=== PATIENT | female | born 1955 | race Asian ===

== ENCOUNTER → 2017-07-31 | Outpatient (CLI) | payer OTHER, SELFPAY | PROVIDERS: Visit Provider Nurse Practitioner Family | DX: Z13.820 Encounter for screening for osteoporosis (principal) | CPT/HCPCS: 77080 ==

== ENCOUNTER → 2017-11-26 10:46 | Outpatient (POV) | payer OTHER, SELFPAY | PROVIDERS: Family Provider Nurse Practitioner Family; PCP Family Medicine; Visit Provider Specialist | DX: G62.9 Polyneuropathy, unspecified (principal) | CPT/HCPCS: 95886; 95908 ==

== ENCOUNTER → 2017-12-03 14:55 | Outpatient (POV) | payer OTHER, SELFPAY | PROVIDERS: Family Provider Nurse Practitioner Family; PCP Family Medicine; Visit Provider Specialist | DX: G62.9 Polyneuropathy, unspecified (principal); R20.2 Paresthesia of skin | CPT/HCPCS: 95908 ==

== ENCOUNTER → 2018-01-21 15:05 | Outpatient (POV) | payer OTHER, SELFPAY ==
[2018-01-21 15:23] VITALS: BP 123/71; PULSE 86; RESP 18; O2SAT 98
--- NOTE | 2018-01-21 15:56 | HMH.PMCON ---
Assessment and Plan (1) Neuropathy Current visit: Yes Status: Chronic Category: Medical Code(s): G62.9 - Polyneuropathy, unspecified - Assessment and plan all Dx Assessment and Plan for all problems:: We will start the patient back on her gabapentin 100 mg 1 p.o. 3 times daily. We will follow-up with her in 3 months. Patient has been instructed to call our office if she has issues prior to her appointment. Patient is doing well at this time after her steroid injection by Dr. Hendrix. This note was dictated using voice recognition software and may contain errors or omissions HPI - Data of Consult Consult date: 01/21/18 Requesting Physician: Rama Bustos APRN Primary Care Provider: Blayne Hung MD Family Provider: Daiana Golden APRN - Consult Narrative Reason for consult: Right foot pain History of present illness: Ms. Pierre is a 62 year old female who presents today for consultation in regards to right foot pain. Patient said that the injury occurred after repetitive motion from a sewing machine. Patient states working increases the pain while rest decreases it. Patient denies numbness or tingling. Patient is currently on diclofenac cream. Patient rates her pain 0 out of 10 today. Patient states that she had a steroid injection in her right foot by Dr. Foley. Patient states that after this she has done extremely well. Patient states she does have burning sensations at times in her right foot. Patient used to be on gabapentin. She denies any side effects to this. Patient would like to restart this. CC: Rama Bustos APRN [facility] History I have reviewed the patient's past medical history: Yes Medical History: Denies:: Asthma, Chronic Obstructive Pulmonary Disease (COPD), Diabetes Mellitus Type 1, Diabetes Mellitus Type 2, Gastroesophageal Reflux Disease(GERD) Other Medical History: Reports: Arthritis. Denies: Hypothyroidism, Thyroid Disease Laterality Cases: Bilateral: Carpal Tunnel Release, Tonsillectomy Other Surgeries: Yes: Hysterectomy-Total Amputation: No Fractures: No - *Social History Smoking Status: Never smoker Alcohol Intake: never Alcohol Intake Frequency:: other Occupational Status: employed Housing: house Household Members: spouse - Psychiatric History Expresses thoughts of harming self/others: None Suicide Plan Description: No Plan *Family Hx:: Cancer Review of Systems - Review of Systems ROS General: no recent weight change, no fever, no sleep disturbances Respiratory: no cough, no shortness of air, no recurring pulmonary infections Cardiovascular/Peripheral Vascular: No chest pain, No palpitations, no edema, no shortness of breath. Gastrointestinal: no incontinence, normal bowel movements reported Genitourinary: no incontinence Musculoskeletal: Right foot pain Psychiatric: normal mood/ affect Neurological: [denies weakness in extremities], [denies balance issues] Meds Home Medications Medication Instructions Recorded Confirmed Type Diclofenac Sodium [Diclofenac Sod 100 gm TOPICAL DAILY 01/21/18 01/21/18 History 100gm Topical Gel] Gabapentin [Gabapentin 100mg Cap] 100 mg PO DAILY 01/21/18 01/21/18 History Allergies Allergy/AdvReac Type Severity Reaction Status Date / Time No Known Drug Allergies Allergy Unknown Unverified 12/31/17 09:51 [NKDA] INGREDIENT: NO KNOWN - NO Allergy Unknown Uncoded 12/31/17 09:51 KNOWN DRUG ALLERGY Objective Vital signs: Pulse Resp BP Pulse Ox 86 18 123/71 98 01/21/18 15:23 01/21/18 15:23 01/21/18 15:23 01/21/18 15:23 Narrative: Physical Exam General: Alert and oriented x3, no acute distress, pleasant and cooperative, [on room air] Lungs: Resps E/U, Symmetrical chest expansion, Eyes: PERRL Musculoskeletal: Range of motion right foot somewhat guarded secondary to pain, deep tendon reflexes normal, strength in upper and lower extremities [5/5], n
--- NOTE | 2018-01-21 15:59 | P.CONS_ITS ---
Assessment and Plan (1) Neuropathy Current visit: Yes Status: Chronic Category: Medical Code(s): G62.9 - Polyneuropathy, unspecified - Assessment and plan all Dx Assessment and Plan for all problems:: We will start the patient back on her gabapentin 100 mg 1 p.o. 3 times daily. We will follow-up with her in 3 months. Patient has been instructed to call our office if she has issues prior to her appointment. Patient is doing well at this time after her steroid injection by Dr. Hendrix. This note was dictated using voice recognition software and may contain errors or omissions HPI - Data of Consult Consult date: 01/21/18 Requesting Physician: Rama Bustos APRN Primary Care Provider: Blayne Hung MD Family Provider: Daiana Golden APRN - Consult Narrative Reason for consult: Right foot pain History of present illness: Ms. Pierre is a 62 year old female who presents today for consultation in regards to right foot pain. Patient said that the injury occurred after repetitive motion from a sewing machine. Patient states working increases the pain while rest decreases it. Patient denies numbness or tingling. Patient is currently on diclofenac cream. Patient rates her pain 0 out of 10 today. Patient states that she had a steroid injection in her right foot by Dr. Foley. Patient states that after this she has done extremely well. Patient states she does have burning sensations at times in her right foot. Patient used to be on gabapentin. She denies any side effects to this. Patient would like to restart this. CC: Rama Bustos APRN [facility] History I have reviewed the patient's past medical history: Yes Medical History: Denies:: Asthma, Chronic Obstructive Pulmonary Disease (COPD), Diabetes Mellitus Type 1, Diabetes Mellitus Type 2, Gastroesophageal Reflux Disease(GERD) Other Medical History: Reports: Arthritis. Denies: Hypothyroidism, Thyroid Disease Laterality Cases: Bilateral: Carpal Tunnel Release, Tonsillectomy Other Surgeries: Yes: Hysterectomy-Total Amputation: No Fractures: No - *Social History Smoking Status: Never smoker Alcohol Intake: never Alcohol Intake Frequency:: other Occupational Status: employed Housing: house Household Members: spouse - Psychiatric History Expresses thoughts of harming self/others: None Suicide Plan Description: No Plan *Family Hx:: Cancer Review of Systems - Review of Systems ROS General: no recent weight change, no fever, no sleep disturbances Respiratory: no cough, no shortness of air, no recurring pulmonary infections Cardiovascular/Peripheral Vascular: No chest pain, No palpitations, no edema, no shortness of breath. Gastrointestinal: no incontinence, normal bowel movements reported Genitourinary: no incontinence Musculoskeletal: Right foot pain Psychiatric: normal mood/ affect Neurological: [denies weakness in extremities], [denies balance issues] Meds Home Medications Medication Instructions Recorded Confirmed Type Diclofenac Sodium [Diclofenac Sod 100 gm TOPICAL DAILY 01/21/18 01/21/18 History 100gm Topical Gel] Gabapentin [Gabapentin 100mg Cap] 100 mg PO DAILY 01/21/18 01/21/18 History Allergies Allergy/AdvReac Type Severity Reaction Status Date / Time No Known Drug Allergies Allergy Unknown Unverified 12/31/17 09:51 [NKDA] INGREDIENT: NO KNOWN - NO Allergy Unknown Uncoded 12/31/17 09:51 KNOW
--- NOTE | 2018-02-08 15:02 | PC.PHONENOTE ---
prescription for gabapentin 100mg tid [facility]
== END ==
PROVIDERS: Family Provider Nurse Practitioner Family; PCP Family Medicine; Visit Provider Clinical Nurse Specialist Family Health
DX: G62.9 Polyneuropathy, unspecified (principal)
CPT/HCPCS: 99202

== ENCOUNTER 2018-03-14 15:00 | Outpatient (RCR) | payer OTHER, SELFPAY ==
--- NOTE | 2017-12-19 14:43 | HMH.PTOPEV ---
Rehab Outpatient Evaluation Rehab OP Evaluation Start: 12/19/17 13:37 Freq: Status: Active Protocol: Document 12/19/17 13:38 TRACI (Rec: 12/19/17 14:43 TRACI [id number]) Electronically Signed By Get Esquivel, PT 12/19/17 13:38 Outpatient Therapy Subjective History Subjective History Pt reports h/o chronic B knee pain L>R over the last ~5 yrs. Pt reports exacerbation of s/ s over the last 2-3months with pain mostly anterior in origin, and anterio-medial on L. Pt reports recent Xrays have revealed OA in both knees . Chief Complaint Pain Stiff Weakness Symptom Type Ache Throb Dull Symptoms Relieved By Rest/Positioning Symptoms Aggravated By Standing Physical Activity Walking Prior Functional Limitations Standing Walking Current Functional Limitations Standing Squatting Recreation Activity Walking Stairs Symptom Description Constant but Variable Level of pain today (0-10) 5 Pain scale - at its best (0-10) 5 Pain scale - at its worst (0-10) 8 Hip/Knee Eval Gait Observation General Gait Pattern Observation Antalgic Gait Palpation Tenderness right Knee Palpation Finding Tenderness Knee Palpation Overall Comment 2/4 left Knee Palpation Finding Tenderness Knee Palpation Overall Comment 3/4 MMT bilateral Hip Flexion Strength Grade 4- Good- Hip Abduction Strength Grade 4- Good- Hip Adduction Strength Grade 4- Good- Hip Extension Strength Grade 4- Good- Knee Extension Strength Grade 4 Good Knee Flexion Strength Grade 4 Good ROM Knee Flexion Active Range of Motion ( 0-130 degrees) Knee ROM Reason Not Measured Within Functional Limits Effusion joint effusion knee exam standard left Mid - Patellar Circumerential Measure ( 34 cm) Special Tests Patellar Grind Test Positive Left Patellar Compression Test Positive Left Outpatient Therapy Assessment Impairments Problems/Impairmments Palpation Tenderness Impaired Range of Motion Impaired Strength
--- NOTE | 2018-01-22 14:51 | HMH.RHREAS ---
Rehab Reassessment Rehab OP Re-assessment Start: 01/22/18 13:56 Freq: Status: Active Protocol: Document 01/22/18 13:59 TRACI (Rec: 01/22/18 14:07 TRACI [id number]) Electronically Signed By Get Esquivel, PT 01/22/18 13:59 Rehab Re-assessment Subjective Subjective Pt reports improved B knee pain and function since I EVAL , and reports 5/10 L knee pain and 0/10 R knee pain on VAS Objective Objective Notes AROM B KNEE FLX 0-135 MMT: B QUAD 4+/5, B HS 4+/5, L HIP FLX 4/5, L HIP ABD 4-/5, L HIP ADD 4-/5, HIP EXT 4/5 TTP: L KNEE MEDIAL AND LATERAL JT LINE 1/4 Assessment Progress Assessment Progressing as Expected Assessment Notes PT W/IMPROVED STRENGTH, TTP, AND ROM Patient goals met STG'S 12/16 LTG'S 10/19 Goals Not Met STG'S 08/18, LTG'S 01/19 Plan Plan Pt to continue w/skilled PT to make further improvements w/ ROM, strength, and TTP to allow for optimal function Frequency of Therapy 2-3x/wk Duration of therapy 4-6 wks Time and Billing Re-Eval Time 15 Re-Eval Billing Units 1 PHYSICIAN CERTIFICATION: I certify the specified therapy services for Edgar Pierre are required, authorized, and reviewed every 30 days.
== END 2018-03-14 15:01 | disposition home or self-care (01) ==
LOC: PT 15:00
PROVIDERS: Family Provider Nurse Practitioner Family; PCP Family Medicine; Visit Provider Nurse Practitioner Family
DX: M17.0 Bilateral primary osteoarthritis of knee (principal)
CPT/HCPCS: 97010; 97014; 97033; 97035; 97110; 97163; 97164; G0283

== ENCOUNTER → 2018-03-26 09:29 | Outpatient (CLI) | payer OTHER, SELFPAY ==
--- NOTE | 2018-03-26 09:33 | MM_ITS ---
MM Dig screening mamm BI w/CAD ORDERING PHYSICIAN : Daiana Golden PATIENT AGE: 62 years GENDER: Female COMPARISON: Bilateral film screen mammogram July 2018 INDICATION: ITS.REASON: SCREENING 62-year-old no hormones no new complaints noncontributory family history TECHNIQUE: Standard CC and MLO images were obtained. R2 CAD reviewed. FINDINGS: Overall lower density breast today than 2008 reflecting progressive fatty change. With Mild/moderate residual fibroglandular elements both breast , most evident towards upper-outer quadrant right breast... Overall architecture appears stable with no dominant mass nor suspicious calcifications either breast. The asymmetric glandular tissue extending towards the axillary tail left breast is stable since old studies. Follow-up in one year adequate IMPRESSION: ......... Stable bilateral mammogram. Stable mild asymmetry with no significant new areas of concern. BI-RADS Category: 1 Negative RECOMMENDED FOLLOW-UP: 1YR 1 YEAR FOLLOW-UP (A letter has been sent to the patient regarding results of the study.)
== END ==
PROVIDERS: Family Provider Nurse Practitioner Family; PCP Family Medicine; Visit Provider Nurse Practitioner Family
DX: Z12.31 Encounter for screening mammogram for malignant neoplasm of breast (principal)
CPT/HCPCS: 77067

== ENCOUNTER → 2018-06-24 12:58 | Outpatient (CLI) | payer OTHER, SELFPAY | PROVIDERS: PCP Nurse Practitioner Family; Visit Provider Nurse Practitioner Family | DX: R07.9 Chest pain, unspecified (principal) | CPT/HCPCS: 93017 ==

== ENCOUNTER → 2018-09-19 12:20 | Outpatient (CLI) | payer OTHER, SELFPAY ==
--- NOTE | 2018-09-19 12:27 | XR_ITS ---
XR DEXA axial skeleton HISTORY: ITS.REASON: POST MENOPAUSAL ORDERING PHYSICIAN: Daiana Golden PATIENT AGE: 62 years COMPARISON: 07/31/2017 FINDINGS: The BMD measured at the Left femoral neck is 0.783 g/cm squared with a T score of -1.8. This is considered Osteopenic according to the World Health Organization criteria. Fracture risk is Moderate. Treatment is advised. The L1 L4 density has a T score of -0.9 which is increased by 2.2%. The mean hip density has decreased by 3%. IMPRESSION: Osteopenia with moderate fracture risk. Treatment is advised. Suggest follow-up exam September 2020
== END ==
PROVIDERS: PCP Nurse Practitioner Family; Visit Provider Nurse Practitioner Family
DX: Z13.820 Encounter for screening for osteoporosis (principal)
CPT/HCPCS: 77080

== ENCOUNTER → 2018-12-19 07:44 | Outpatient (CLI) | payer OTHER, SELFPAY ==
--- NOTE | 2018-12-19 07:49 | MR_ITS ---
MR head/brain wo con HISTORY: Visual changes, facial pain, right-sided head pain, forgetfulness ITS.REASON: CHANGES IN VISION ORDERING PHYSICIAN: Daiana Golden APRN PATIENT AGE: 63 years Comparison: None TECHNIQUE: Standard multiplanar multiecho sequences are performed without contrast. FINDINGS: No midline shift, mass effect, intracranial hemorrhage, or hydrocephalus. No evidence of acute infarction. There are scattered periventricular and subcortical T2 white matter hyperintensities which could be due to ischemic gliotic change from microvascular disease. Migraine headache is included in the differential diagnosis. There is a small area of mild prominence of the distal aspect of the M1 segment of the right middle cerebral artery on the right suggesting mild dilatation. Possible small aneurysm. MRA recommended for further evaluation. The cerebellopontine angles, cerebellum, and brainstem are unremarkable. Partial empty sella is present as a normal variant. No pituitary mass. The optic chiasm, corpus callosum, and craniocervical junction have an unremarkable appearance. No mastoid effusion or sinus air-fluid level. IMPRESSION: 1. No acute intracranial findings. 2. Scattered T2 white matter hyperintensities which could be due to ischemic gliotic change or migraine headache. 3. Mild prominence of the distal aspect of the right middle cerebral artery. While this could be related to tortuosity, one cannot exclude an aneurysm an MRA is suggested for further evaluation
== END ==
PROVIDERS: PCP Family Medicine; Visit Provider Nurse Practitioner Family
DX: H53.9 Unspecified visual disturbance (principal)
CPT/HCPCS: 70551

== ENCOUNTER → 2018-12-26 10:47 | Outpatient (CLI) | payer OTHER, SELFPAY ==
--- NOTE | 2018-12-26 10:51 | MR_ITS ---
MR angio head wo con CLINICAL INDICATION: Forgetfulness, pain, headache, abnormal MRI, possible aneurysm ITS.REASON: ABNORMAL MRI OF HEAD ORDERING PHYSICIAN: Daiana Golden APRN PATIENT AGE: 63 years Comparison: 12/19/2018 TECHNIQUE: 3-D [id number] images obtained without contrast. Motion artifact was present on the original set of images in the patient was asked to return for repeat images which were better quality. FINDINGS: The area of concern on the MRI corresponds to looping vessel and not an aneurysm. There is persistent origin of the right posterior cerebral artery as a normal variant. There is a persistent lobulation along the medial aspect of the suprasellar portion of the left internal carotid artery just proximal to the ICA bifurcation consistent with a small ICA aneurysm measuring 5 mm. This is below limits of resolution on the regular MRI of the brain. No other significant anomalies are evident. There is persistent origin of the right posterior vertebral artery as a normal variant. No major intracranial occlusive process evident. Single shot MRV shows no obvious sagittal sinus thrombosis. IMPRESSION: 1. 5 mm aneurysm projecting medially off of the proximal suprasellar portion of the left ICA. 2. Looping vessel in the right middle cerebral artery simulating an aneurysm on the brain MRI. No middle cerebral artery aneurysm evident 3. CTA of the brain may serve for presurgical planning if Clinically warranted.
== END ==
PROVIDERS: PCP Nurse Practitioner Family; Visit Provider Nurse Practitioner Family
DX: R93.0 Abnormal findings on diagnostic imaging of skull and head, not elsewhere classified (principal)
CPT/HCPCS: 70544

== ENCOUNTER → 2018-12-30 12:55 | Outpatient (CLI) | payer OTHER, SELFPAY | PROVIDERS: PCP Nurse Practitioner Family; Visit Provider Nurse Practitioner Family | DX: R93.0 Abnormal findings on diagnostic imaging of skull and head, not elsewhere classified (principal) ==

== ENCOUNTER → 2019-07-09 08:47 | Outpatient (CLI) | payer OTHER, SELFPAY ==
--- NOTE | 2019-07-09 08:50 | US_ITS ---
PROCEDURE: US ABDOMEN COMPLETE CLINICAL INDICATION: EPIGASTRIC PAIN, SCREENING AAA Right upper quadrant pain, postprandial pain COMPARISON: No exams were available for comparison FINDINGS: PANCREAS: Unremarkable. No obvious mass or abnormal fluid collection. No ductal dilatation LIVER: No focal liver lesions demonstrated. Homogeneous echogenicity. No intrahepatic biliary ductal dilatation evident. There is appropriate direction of blood flow within a non dilated portal vein RIGHT KIDNEY: Unremarkable. Normal size and echogenicity. No hydronephrosis LEFT KIDNEY: Unremarkable. Normal size and echogenicity. No hydronephrosis GALLBLADDER: No gallstones, gallbladder wall thickening, pericholecystic fluid, or biliary dilatation. AORTA: No evidence of aneurysmal dilatation. SPLEEN: Unremarkable. Normal size and echogenicity ASCITES: None demonstrated. IMPRESSION: Unremarkable abdominal ultrasound Dictated by: Timothy Alexis MD 07/09/2019 13:31 Electronically signed by Timothy Alexis MD in [place] 07/09/2019 13:31
== END ==
PROVIDERS: PCP Nurse Practitioner Family; Visit Provider Nurse Practitioner Family
DX: R10.13 Epigastric pain (principal); Z13.6 Encounter for screening for cardiovascular disorders
CPT/HCPCS: 76700

== ENCOUNTER → 2020-01-27 10:08 | Outpatient (POV) | payer OTHER, SELFPAY | PROVIDERS: PCP Internal Medicine; Visit Provider Otolaryngology | DX: Z00.00 Encounter for general adult medical examination without abnormal findings (principal) ==

== ENCOUNTER → 2020-03-16 09:48 | Outpatient (POV) | payer OTHER, SELFPAY | PROVIDERS: Visit Provider Otolaryngology | DX: Z00.00 Encounter for general adult medical examination without abnormal findings (principal) ==

== ENCOUNTER → 2020-12-04 09:24 | Outpatient (CLI) | payer MEDICARE, OTHER, SELFPAY | PROVIDERS: PCP Family Medicine; Visit Provider Nurse Practitioner Family | DX: M25.511 Pain in right shoulder (principal); R22.31 Localized swelling, mass and lump, right upper limb ==

== ENCOUNTER → 2020-12-13 13:33 | Outpatient (CLI) | payer MEDICARE, OTHER, SELFPAY ==
--- NOTE | 2020-12-13 13:35 | MR_ITS ---
PROCEDURE INFORMATION: Exam: MR Right Upper Extremity Joint Without Contrast; Shoulder Exam date and time: 12/13/2020 1:35 PM Age: 65 years old Clinical indication: Right; Patient HX: RT shoulder pain and swelling with lump over RT shoulder. Put marker on lump; Additional info: Acute pain of right shoulder, lump of skin TECHNIQUE: Imaging protocol: MR of the Right upper extremity without contrast. Exam focused on the shoulder. COMPARISON: No relevant prior studies available. FINDINGS: Limitations: Motion artifact. Bones and cartilage: The undersurface of the acromion is flattened, which may be developmental or due to prior acromioplasty. Benign subchondral cysts involve the humeral head. There is no acute fracture or dislocation. No aggressive bone lesions are present. Joint spaces: A normal amount of fluid is present in the glenohumeral joint. The acromioclavicular joint is mildly widened, which may be due to prior injury, resorption, or surgery (series 8/image 9). There is no significant associated soft tissue edema or bone marrow edema to suggest an acute injury. Glenoid labrum: Abnormal signal and morphology of the labrum in a patient of this age likely represents degenerative tearing. Bursae: A trace amount of fluid is present in the subacromial-subdeltoid bursa. Supraspinatus tendon: Low-grade partial-thickness tearing involves the bursal surface of the supraspinatus tendon. Severe tendinosis involves the remainder of the supraspinatus tendon. Infraspinatus tendon: Moderate tendinosis involves the infraspinatus tendon. Subscapularis tendon: Low-grade partial-thickness tearing involves the articular surface of the subscapularis tendon. Moderate tendinosis involves the remainder of the subscapularis tendon. Teres minor tendon: No tear or significant tendinosis involves the teres minor tendon. Tendon of biceps brachii: Mild tendinosis involves the intra-articular portion of the long head of the biceps tendon. Glenohumeral ligaments: Unremarkable. Muscles: Unremarkable. Soft tissues: The location of the palpable abnormality involving the anterosuperior shoulder was designated with a skin marker. In the symptomatic region, there is a focal collection of fat measuring 2.5 x 2.5 x 1 cm with a thin capsule (series 8/images 14-17). This mass does not contain thickened septa or soft tissue nodules. The appearance is consistent with a benign lipoma. No followup is recommended. IMPRESSION: 1. Palpable mass involving the anterosuperior shoulder corresponds to a benign lipoma in the subcutaneous fat measuring 2.5 x 2.5 x 1 cm. 2. Low-grade partial-thickness tearing of the subscapularis and supraspinatus tendons, superimposed on moderate to severe tendinosis. 3. Probable degenerative tearing of the labrum.
== END ==
PROVIDERS: PCP Family Medicine; Visit Provider Nurse Practitioner Family
DX: M25.511 Pain in right shoulder (principal); R22.31 Localized swelling, mass and lump, right upper limb
CPT/HCPCS: 73221

== ENCOUNTER → 2021-01-18 15:23 | Outpatient (CLI) | payer MEDICARE, OTHER, SELFPAY ==
[2021-01-18 16:46] LABS: Basophils % 0.6 % (0.1-2.0); Eosinophils # 0.1 K/mm3 (0.0-0.4); Eosinophils % 1.5 % (0.1-12.0); Hematocrit 36.6 % (37.0-47.0); Hemoglobin 12.6 g/dL (12.2-16.2); Lymphocytes # 1.8 K/mm3 (0.7-4.5); Lymphocytes % 41.8 % (10-50); Mean Corpuscular HGB Conc 34.5 g/dL (31.8-35.4); Mean Corpuscular Hemoglobin 32.1 pg (27.0-31.2); Mean Corpuscular Volume 93.3 fl (81-99); Mean Platelet Volume 7.9 fl (7.4-10.4); Monocytes # 0.3 K/mm3 (0.1-1.0); Monocytes % 5.9 % (1.7-9.3); Neutrophils # 2.1 K/mm3 (1.8-7.8); Neutrophils % 50.1 % (37.0-80.0); Platelet Count 173 K/mm3 (142-424); Red Blood Count 3.92 M/mm3 (4.20-5.40); Red Cell Distribution Width 13.2 % (11.5-17.5); White Blood Count 4.2 K/mm3 (4.8-10.8)
[2021-01-18 17:38] LABS: 25-OH Vitamin D, Total 84.5 ng/mL (30-100); Free T4 (Free Thyroxine) 1.28 ng/dl (0.78-2.19)
[2021-01-18 18:11] LABS: Vitamin B12 401 pg/mL (239-931)
[2021-01-18 18:34] LABS: Ferritin 59.9 ng/ml (11.1-264)
== END ==
PROVIDERS: Visit Provider Nurse Practitioner Family
DX: R22.0 Localized swelling, mass and lump, head (principal); Z79.899 Other long term (current) drug therapy; D64.9 Anemia, unspecified
CPT/HCPCS: 36415; 82306; 82607; 82728; 84439; 84443; 85025

== ENCOUNTER → 2021-02-10 11:25 | Outpatient (CLI) | payer MEDICARE, OTHER, SELFPAY ==
[2021-02-10 13:45] LABS: Blood Urea Nitrogen 12 mg/dl (7-17); Estimated Glomerular Filt Rate 84 ml/min (>60); GFR (African American) 102 ML/MIN (>60)
== END ==
PROVIDERS: Visit Provider Nurse Practitioner Family
DX: Z01.812 Encounter for preprocedural laboratory examination (principal); R10.31 Right lower quadrant pain
CPT/HCPCS: 36415; 82565; 84520

== ENCOUNTER → 2021-02-17 10:20 | Outpatient (CLI) | payer MEDICARE, OTHER, SELFPAY ==
--- NOTE | 2021-02-17 10:28 | XR_ITS ---
PROCEDURE: XR SHOULDER RT MIN 2V CLINICAL INDICATION: RT shoulder pain COMPARISON: MR MR SHOULDER RT WO CON from 12/13/2020 FINDINGS: No fracture or dislocation. No lytic or blastic change. There is normal mineralization. There are mild osteoarthritic changes of the glenohumeral joint with some decrease in the joint space. Other findings:None. IMPRESSION: Mild osteoarthritic change otherwise negative Dictated by: Timothy Alexis MD 02/17/2021 11:53 Timothy Alexis MD in [facility] 02/17/2021 11:53
--- NOTE | 2021-02-17 10:29 | CT_ITS ---
PROCEDURE: CT ABDOMEN PELVIS W CON CLINICAL INDICATION: RLQ ABD PAIN COMPARISON: No exams were available for comparison TECHNIQUE: IV Contrast: 75ML Isovue 370 Oral Contrast None Axial images obtained with sagittal and coronal reformats. All CT scans at the facility use one or more dose reduction, viz: automated exposure control, ma/kV adjustment per patient size (including targeted exams where dose is matched to indication, i.e. head), or iterative reconstruction technique. FINDINGS: LOWER THORAX: No acute finding ABDOMEN & PELVIS: The liver, spleen, and adrenal glands have an unremarkable appearance. The gallbladder appears slightly distended. There is mild thickening of the gastric wall. This is nonspecific and could be due to gastritis or nondistention. No renal or ureteral calculi evident. No evidence of appendicitis. No intestinal obstruction or free air. Status post hysterectomy. No pelvic mass or abnormal fluid collection of the pelvis no evidence of diverticulitis. Mild degenerative changes of the spine IMPRESSION: No evidence of appendicitis. Nonspecific gastric wall thickening which could be due to nondistention or gastritis. Dictated by: Timothy Alexis MD 02/17/2021 16:12 Timothy Alexis MD in [facility] 02/17/2021 16:12
== END ==
PROVIDERS: PCP Nurse Practitioner Family; Visit Provider Nurse Practitioner Family
DX: M25.511 Pain in right shoulder (principal); R10.31 Right lower quadrant pain
CPT/HCPCS: 73030; 74177; Q9967

== ENCOUNTER → 2021-07-29 09:06 | Outpatient (CLI) | payer MEDICARE, OTHER, SELFPAY ==
--- NOTE | 2021-07-29 09:09 | US_ITS ---
PROCEDURE: US TRANSVAGINAL CLINICAL INDICATION: PELVIC PAIN COMPARISON: No exams were available for comparison FINDINGS: Status post complete hysterectomy. Vaginal cuff has an unremarkable appearance. No pelvic mass or cul-de-sac fluid demonstrated. IMPRESSION: Unremarkable status post complete hysterectomy Dictated by: Timothy Alexis MD 07/29/2021 18:01 Timothy Alexis MD in [facility] 07/29/2021 18:01
== END ==
PROVIDERS: PCP Nurse Practitioner Family; Visit Provider Nurse Practitioner Family
DX: R10.2 Pelvic and perineal pain (principal)
CPT/HCPCS: 76830

== ENCOUNTER → 2021-10-20 15:19 | Outpatient (CLI) | payer MEDICARE, OTHER, SELFPAY ==
--- NOTE | 2021-10-20 15:33 | XR_ITS ---
FINAL REPORT CLINICAL HISTORY: SOB,COVID 19 FINDINGS: Two views of the chest were obtained. The heart size and pulmonary vascularity are within normal limits. The mediastinum is normal. No acute pulmonary abnormality is identified. There is no pneumothorax. The bony thorax is intact. IMPRESSION: No active cardiopulmonary disease. Reviewed, Interpreted and Dictated by Ashkan Jaime III, MD Transcribed by Megan Jeronimo Authenticated by Ashkan Jaime III, MD on 10/20/2021 04:47:19 PM [facility]
== END ==
PROVIDERS: PCP Nurse Practitioner Family; Visit Provider Nurse Practitioner Family
DX: R06.02 Shortness of breath (principal); U07.1 COVID-19
CPT/HCPCS: 71046

== ENCOUNTER → 2021-10-25 11:59 | Outpatient (CLI) | payer MEDICARE, OTHER, SELFPAY ==
[2021-10-25 12:55] LABS: Basophils % 1.2 % (0.1-2.0); Eosinophils # 0.1 K/mm3 (0.0-0.4); Eosinophils % 1.5 % (0.1-12.0); Hematocrit 39.2 % (37.0-47.0); Hemoglobin 12.8 g/dL (12.2-16.2); Lymphocytes # 1.6 K/mm3 (0.7-4.5); Lymphocytes % 45.8 % (10-50); Mean Corpuscular HGB Conc 32.6 g/dL (31.8-35.4); Mean Corpuscular Hemoglobin 32.6 pg (27.0-31.2); Mean Corpuscular Volume 100.1 fl (81-99); Monocytes # 0.3 K/mm3 (0.1-1.0); Monocytes % 7.7 % (1.7-9.3); Neutrophils # 1.5 K/mm3 (1.8-7.8); Neutrophils % 43.8 % (37.0-80.0); Platelet Count 176 K/mm3 (142-424); Red Blood Count 3.92 M/mm3 (4.20-5.40); Red Cell Distribution Width 14.7 % (11.5-17.5); White Blood Count 3.5 K/mm3 (4.8-10.8)
[2021-10-25 13:09] LABS: D-Dimer 0.47 ug/mL (0.0-0.5)
[2021-10-25 14:15] LABS: Chloride 107 mmol/L (98-107)
[2021-10-25 14:16] LABS: Potassium 4.1 mmoL/L (3.5-5.1); Sodium 141 mmol/L (136-145)
[2021-10-25 14:18] LABS: Alanine Aminotransferase 21 U/L (12-78); Albumin Level 4.3 g/dl (3.5-5.0); Albumin/Globulin Ratio 1.5 (1.1-1.8); Alkaline Phosphatase 51 U/L (38-126); Anion Gap 9.1 mEq/L (5-15); Aspartate Amino Transferase 35 U/L (14-36); Bilirubin,Total 0.5 mg/dl (0.2-1.3); Blood Urea Nitrogen 19 mg/dl (7-17); Carbon Dioxide 29 mmol/L (22.0-30.0); Estimated Glomerular Filt Rate 84 ml/min (>60); GFR (African American) 102 ML/MIN (>60); Globulin 2.8 g/dL (1.3-3.2); Total Protein,Serum 7.1 g/dl (6.3-8.2)
[2021-10-25 14:19] LABS: Calcium 8.4 mg/dl (8.4-10.2); Glucose 76 mg/dl (74-100)
== END ==
PROVIDERS: Visit Provider Nurse Practitioner Family
DX: R06.02 Shortness of breath (principal); U07.1 COVID-19
CPT/HCPCS: 36415; 80053; 85025; 85378

== ENCOUNTER → 2021-11-21 14:10 | Outpatient (CLI) | payer MEDICARE, OTHER, SELFPAY ==
[2021-11-21 15:04] LABS: Basophils # 0.1 K/mm3 (0-0.2); Basophils % 1.5 % (0.1-2.0); Eosinophils # 0.1 K/mm3 (0.0-0.4); Eosinophils % 1.9 % (0.1-12.0); Hematocrit 38.2 % (37.0-47.0); Hemoglobin 12.6 g/dL (12.2-16.2); Lymphocytes # 1.4 K/mm3 (0.7-4.5); Lymphocytes % 46.1 % (10-50); Mean Corpuscular HGB Conc 32.9 g/dL (31.8-35.4); Mean Corpuscular Hemoglobin 32.8 pg (27.0-31.2); Mean Corpuscular Volume 99.8 fl (81-99); Mean Platelet Volume 8.6 fl (7.4-10.4); Monocytes # 0.3 K/mm3 (0.1-1.0); Monocytes % 8.6 % (1.7-9.3); Neutrophils # 1.3 K/mm3 (1.8-7.8); Neutrophils % 41.9 % (37.0-80.0); Platelet Count 183 K/mm3 (142-424); Red Blood Count 3.83 M/mm3 (4.20-5.40); Red Cell Distribution Width 14.1 % (11.5-17.5); White Blood Count 3.1 K/mm3 (4.8-10.8)
[2021-11-21 16:15] LABS: Alanine Aminotransferase 17 U/L (12-78); Albumin Level 4.1 g/dl (3.5-5.0); Albumin/Globulin Ratio 1.5 (1.1-1.8); Alkaline Phosphatase 38 U/L (38-126); Anion Gap 7.3 mEq/L (5-15); Aspartate Amino Transferase 34 U/L (14-36); Bilirubin,Total 0.5 mg/dl (0.2-1.3); Blood Urea Nitrogen 17 mg/dl (7-17); Calcium 8.9 mg/dl (8.4-10.2); Carbon Dioxide 31 mmol/L (22.0-30.0); Chloride 106 mmol/L (98-107); Estimated Glomerular Filt Rate 101 ml/min (>60); GFR (African American) 122 ML/MIN (>60); Globulin 2.7 g/dL (1.3-3.2); Glucose 72 mg/dl (74-100); Potassium 4.3 mmoL/L (3.5-5.1); Sodium 140 mmol/L (136-145); Total Protein,Serum 6.8 g/dl (6.3-8.2)
== END ==
PROVIDERS: Visit Provider Nurse Practitioner Family
DX: D72.819 Decreased white blood cell count, unspecified (principal)
CPT/HCPCS: 36415; 80053; 85025

== ENCOUNTER → 2022-02-09 10:37 | Outpatient (CLI) | payer MEDICARE, OTHER, SELFPAY ==
--- NOTE | 2022-02-09 10:39 | MM_ITS ---
PROCEDURE INFORMATION: Exam: MG Bilateral Screening 3D Mammography Exam date and time: 02/09/2022 10:35 AM Age: 66 years old Clinical indication: Screening examination TECHNIQUE: Imaging protocol: Bilateral Screening tomosynthesis and 2D mammography including computer-aided detection (CAD) when performed. COMPARISON: MG SCBI MM Dig screening mamm BI w/CAD 03/26/2018 9:59 AM FINDINGS: MAMMOGRAPHY: Breast composition: There are scattered areas of fibroglandular density. Mass: None. Architectural distortion: None. Calcifications: No suspicious calcifications. Asymmetric density: None. Skin thickening: None. Axillary adenopathy: None. IMPRESSION: No mammographic evidence of malignancy. Annual screening is recommended unless otherwise clinically indicated. ASSESSMENT: BI-RADS Category 1: Negative
== END ==
PROVIDERS: PCP Nurse Practitioner Family; Visit Provider Nurse Practitioner Family
DX: Z12.31 Encounter for screening mammogram for malignant neoplasm of breast (principal)
CPT/HCPCS: 77063; 77067

== ENCOUNTER → 2022-05-30 15:19 | Outpatient (CLI) | payer MEDICARE, OTHER, SELFPAY ==
--- NOTE | 2022-05-30 15:27 | XR_ITS ---
FINAL REPORT CLINICAL HISTORY: pain FINDINGS: THORACIC SPINE Two views demonstrate no acute fracture. There are mild degenerative changes with osteophytes. There is no malalignment. IMPRESSION: No acute process. LUMBAR SPINE Five views demonstrate no acute fracture. There are mild degenerative changes with osteophytes. There is no malalignment. IMPRESSION: No acute process. Reviewed, Interpreted and Dictated by Ashkan Jaime III, MD Transcribed by Teagan Gutierrez Authenticated and [facility]
== END ==
PROVIDERS: PCP Nurse Practitioner Family; Visit Provider Nurse Practitioner Family
DX: M54.6 Pain in thoracic spine (principal); M54.50 Low back pain, unspecified
CPT/HCPCS: 72084

== ENCOUNTER → 2023-05-22 09:24 | Outpatient (CLI) | payer MEDICARE, OTHER, SELFPAY ==
--- NOTE | 2023-05-22 09:29 | XR_ITS ---
FINAL REPORT CLINICAL HISTORY: Postmenopausal FINDINGS: Using L1-4, the bone mineral density of the spine is 0.999 g/cm2, corresponding to T-score of -0.4. Using the left hip, the bone mineral density of the femoral neck is 0.723 g/cm2, corresponding to a T-score of -1.1. Using the right hip: The bone mineral density of the femoral neck is 0.684 g/cm2, corresponding to a T-score of -1.5. IMPRESSION: Normal bone mineral density of the lumbar spine. Low bone mineral density in the bilateral hips. NOTE: T-score: Standard deviation compared with peak bone mass of young adult mean. *Following the recommendations of the International Society of Bone densitometry, classification of hip BMD is based on the lower of two T-scores; total hip or femoral neck. Reviewed, Interpreted and Dictated by Ashkan Jaime III, MD Transcribed by Alyson Lagunas Authenticated and [facility]
== END ==
PROVIDERS: PCP Nurse Practitioner; Visit Provider Nurse Practitioner
DX: M85.89 Other specified disorders of bone density and structure, multiple sites (principal); M81.0 Age-related osteoporosis without current pathological fracture
CPT/HCPCS: 77080

== ENCOUNTER 2023-10-16 15:08 | Outpatient (CLI) | payer MEDICARE, OTHER, SELFPAY ==
--- NOTE | 2023-10-16 15:11 | MM_ITS ---
PROCEDURE INFORMATION: Exam: MG Bilateral Screening 3D Mammography Exam date and time: 10/16/2023 3:10 PM Age: 67 years old Clinical indication: Screening examination TECHNIQUE: Imaging protocol: Bilateral Screening tomosynthesis and 2D mammography including computer-aided detection (CAD) when performed. COMPARISON: 1. MG MM DIG SCREENING MAMM BI W/CAD 02/09/2022 10:35 AM 2. MG SCBI MM Dig screening mamm BI w/CAD 03/26/2018 9:59 AM FINDINGS: MAMMOGRAPHY: Breast composition: There are scattered areas of fibroglandular density. Mass: None. Architectural distortion: None. Calcifications: No suspicious calcifications. Asymmetric density: None. Skin thickening: None. Axillary adenopathy: None. IMPRESSION: No mammographic evidence of malignancy. Annual screening is recommended unless otherwise clinically indicated. ASSESSMENT: BI-RADS Category 1: Negative
== END 2023-10-16 23:59 ==
PROVIDERS: PCP Nurse Practitioner; Visit Provider Nurse Practitioner
DX: Z12.31 Encounter for screening mammogram for malignant neoplasm of breast (principal)
CPT/HCPCS: 77063; 77067

== ENCOUNTER 2023-11-03 00:48 | Observation (INO) | payer MEDICARE, OTHER, SELFPAY ==
[2023-11-03] VITALS (12 sets, daily range): BP systolic 107–172; BP diastolic 64–96; PULSE 70–92; RESP 16–22; TEMP 36.2–37; O2SAT 94–100; BMI 23.8
--- NOTE | 2023-11-03 01:08 | CT_ITS ---
PROCEDURE INFORMATION: Exam: CT Head Without Contrast Exam date and time: 11/03/2023 2:08 AM Age: 67 years old Clinical indication: Pain; Headache; Additional info: Headache, HTN TECHNIQUE: Imaging protocol: Computed tomography of the head without contrast. Radiation optimization: All CT scans at this facility use at least one of these dose optimization techniques: automated exposure control; mA and/or kV adjustment per patient size (includes targeted exams where dose is matched to clinical indication); or iterative reconstruction. COMPARISON: 1. CT ANGIO HEAD 11/03/2023 2:08 AM 2. AGHEADWO MR angio head wo con 12/26/2018 11:02 AM 3. BRAINWO MR head/brain wo con 12/19/2018 8:03 AM FINDINGS: Brain: No evidence for acute intracranial hemorrhage, midline shift, or mass effect. No convincing evidence for acute transcortical infarct. Cerebral ventricles: No ventriculomegaly. Paranasal sinuses: There is extensive severe sinus mucosal disease which is partially imaged. Mastoid air cells: Visualized mastoid air cells are well aerated. Dental: There is dental amalgam which causes streak artifact and mildly limits evaluation of the oral cavity. Bones/joints: Unremarkable. No acute fracture. Soft tissues: Unremarkable. IMPRESSION: 1. There is extensive severe sinus mucosal disease which is partially imaged. 2. No evidence for acute intracranial hemorrhage, midline shift, or mass effect. No convincing evidence for acute transcortical infarct.
--- NOTE | 2023-11-03 01:08 | CT_ITS ---
PROCEDURE INFORMATION: Exam: CTA Chest With Contrast Exam date and time: 11/03/2023 2:14 AM Age: 67 years old Clinical indication: Pain; Angina pectoris; Additional info: Cp HTN TECHNIQUE: Imaging protocol: Computed tomographic angiography of the chest with contrast. Exam focused on the arteries. 3D rendering (Not supervised by radiologist): MIP and/or 3D reconstructed images were created by the technologist. Radiation optimization: All CT scans at this facility use at least one of these dose optimization techniques: automated exposure control; mA and/or kV adjustment per patient size (includes targeted exams where dose is matched to clinical indication); or iterative reconstruction. Contrast material: ISOVUE 370; Contrast volume: 100 ml; Contrast route: INTRAVENOUS (IV); COMPARISON: CR XR CHEST 2V 10/20/2021 3:35 PM FINDINGS: Pulmonary arteries: The main pulmonary artery is mildly prominent, measuring up to 3 cm, a common finding with pulmonary hypertension. Aorta: Minimal atherosclerotic calcifications of the aortic arch. There are atherosclerotic calcifications of the origin of the arch traverses. No aortic aneurysm. No aortic dissection. Lungs: No consolidation. No masses. There are dependent opacities, likely subsegmental atelectasis. Indeterminate 4 mm nodule in the right middle lobe is a nonspecific finding. Optional follow-up CT of the chest could be obtained within 12 months according to Fleischner criteria. Pleural spaces: Unremarkable. No pneumothorax. No pleural effusion. Heart: Unremarkable. No cardiomegaly. No pericardial effusion. Lymph nodes: Unremarkable. No enlarged lymph nodes. Reproductive: The uterus is patulous with a small amount of fluid in the mid and inferior esophagus. The upper esophagus is mildly dilated, with gas. Bones/joints: Unremarkable. No acute fracture. Soft tissues: Unremarkable. IMPRESSION: 1. No acute findings are identified in the chest. 2. Suggestion of pulmonary hypertension. 3. Patulous esophagus.
--- NOTE | 2023-11-03 01:08 | CT_ITS ---
PROCEDURE INFORMATION: Exam: CTA Neck With Contrast Exam date and time: 11/03/2023 2:08 AM Age: 67 years old Clinical indication: Pain; Headache; Additional info: CARVAJAL HTN cp TECHNIQUE: Imaging protocol: Computed tomographic angiography of the neck with contrast. Exam focused on the cervical segments of the vasculature. 3D rendering (Not supervised by radiologist): MIP and/or 3D reconstructed images were created by the technologist. Radiation optimization: All CT scans at this facility use at least one of these dose optimization techniques: automated exposure control; mA and/or kV adjustment per patient size (includes targeted exams where dose is matched to clinical indication); or iterative reconstruction. Contrast material: ISOVUE 370; Contrast volume: 100 ml; Contrast route: INTRAVENOUS (IV); COMPARISON: 1. CT ANGIO HEAD 11/03/2023 2:[address] HEAD/BRAIN WO CON 11/03/2023 2:08 AM 3. AGHEADWO MR angio head wo con 12/26/2018 11:02 AM FINDINGS: Right common carotid artery: No stenosis. No dissection or occlusion. Right internal carotid artery: No stenosis of the extracranial segment. No dissection or occlusion. Right external carotid artery: No occlusion or stenosis of the origin. Left common carotid artery: No stenosis. No dissection or occlusion. Left internal carotid artery: No stenosis of the extracranial segment. No dissection or occlusion. Left external carotid artery: No occlusion or stenosis of the origin. Right vertebral artery: No stenosis. No dissection or occlusion. Left vertebral artery: No stenosis. No dissection or occlusion. There is a diminutive left vertebral artery, a normal variant. Paranasal sinuses: There is partial visualization of significant sinus mucosal disease including near-complete opacification of the ethmoid air cells . Dental: There is dental amalgam which causes streak artifact and mildly limits evaluation of the oral cavity. Soft tissues: Normal. No significant soft tissue swelling. Bones/joints: No acute fracture. Other findings: Motion artifact mildly limits evaluation. IMPRESSION: 1. There is partial visualization of significant sinus mucosal disease including near-complete opacification of the ethmoid air cells . 2. Mildly motion limited study without acute vascular anomaly. REFERENCES: NASCET CRITERIA. The degree of stenosis in the cervical segment of the internal carotid artery is based on NASCET criteria. Normal is no stenosis. Mild is less than 50% stenosis. Moderate is 50-69% stenosis. Severe is 70% to 99% stenosis. Total occlusion is no detectable patent lumen.
--- NOTE | 2023-11-03 01:08 | XR_ITS ---
PROCEDURE INFORMATION: Exam: XR Right Hip Exam date and time: 11/03/2023 2:16 AM Age: 67 years old Clinical indication: Hip pain; Right hip; Additional info: R hip pain TECHNIQUE: Imaging protocol: Radiologic exam of the right hip. Views: 2 or 3 views hip with pelvis when performed. COMPARISON: CT ANGIO ABDOMEN PELVIS 11/03/2023 2:14 AM FINDINGS: Bones/joints: Those structures are intact. No evidence of acute fractures. Mild degenerative changes of the right hip joint with mild sclerosis along the superior acetabular margin. Mild degenerative changes of the SI joints. Mild degenerative changes of the visualized lumbosacral spine. Soft tissues: Unremarkable. IMPRESSION: 1. No acute fracture is identified. 2. Mild degenerative changes as outlined.
--- NOTE | 2023-11-03 01:08 | CT_ITS ---
PROCEDURE INFORMATION: Exam: CTA Abdomen and Pelvis With Contrast Exam date and time: 11/03/2023 2:14 AM Age: 67 years old Clinical indication: Abdominal pain; Flank; Other: Right; Additional info: Cp, HTN, R flank pain radiating to glute TECHNIQUE: Imaging protocol: Computed tomographic angiography of the abdomen and pelvis with contrast. Exam focused on the arteries. 3D rendering (Not supervised by radiologist): MIP and/or 3D reconstructed images were created by the technologist. Radiation optimization: All CT scans at this facility use at least one of these dose optimization techniques: automated exposure control; mA and/or kV adjustment per patient size (includes targeted exams where dose is matched to clinical indication); or iterative reconstruction. Contrast material: ISOVUE 370; Contrast volume: 100 ml; Contrast route: INTRAVENOUS (IV); COMPARISON: CT ABDOMEN PELVIS W CON 02/17/2021 11:18 AM FINDINGS: Aorta: There are atherosclerotic calcifications of the abdominal aorta and its branches. No aortic aneurysm. No aortic dissection. Celiac trunk and mesenteric arteries: No occlusion or significant stenosis. Renal arteries: No occlusion or significant stenosis. Right iliac arteries: No occlusion or significant stenosis. Left iliac arteries: No occlusion or significant stenosis. Liver: Mild fatty changes of the liver. No mass. Gallbladder and bile ducts: There is a suspected noncalcified small soft tissue focus within the gallbladder measuring 3-4 mm, (series 3, image 301), which could represent a noncalcified stone or artifacts. No calcified stones. No ductal dilation. Pancreas: Unremarkable. No mass. No ductal dilation. Spleen: Unremarkable. No splenomegaly. Adrenal glands: Unremarkable. No mass. Kidneys and ureters: Unremarkable. No solid mass. No hydronephrosis. Stomach and bowel: Patulous esophagus. The stomach is distended with fluid articles and air. Suggestion of mild small bowel wall thickening No obstruction. No mucosal thickening. Appendix: No evidence of appendicitis. Intraperitoneal space: Unremarkable. No free air. No significant fluid collection. Lymph nodes: Scattered small mesenteric lymph nodes are nonspecific.. No enlarged lymph nodes. Urinary bladder: The urinary bladder is distended. No mass. Reproductive: Status post hysterectomy. Bones/joints: Mild degenerative changes of the SI joints. Mild degenerative changes of the lumbosacral spine with disc bulges at multiple levels. Soft tissues: Unremarkable. IMPRESSION: 1. Unremarkable CTA of the abdomen and pelvis. 2. Small noncalcified focus in the gallbladder could represent a noncalcified gallbladder stone or artifacts. 3. Mild atherosclerotic calcifications of the abdominal aorta and its branches. 4. Suspected mild thickening of the small bowel dc can be seen with enteritis, in the appropriate clinical setting. 5. Distended urinary bladder.
--- NOTE | 2023-11-03 01:08 | CT_ITS ---
PROCEDURE INFORMATION: Exam: CTA Head With Contrast, Arteriography Exam date and time: 11/03/2023 2:08 AM Age: 67 years old Clinical indication: Pain; Headache; Additional info: CARVAJAL HTN cp TECHNIQUE: Imaging protocol: Computed tomographic angiography of the head with contrast. Exam focused on the arteries. 3D rendering (Not supervised by radiologist): MIP and/or 3D reconstructed images were created by the technologist. Radiation optimization: All CT scans at this facility use at least one of these dose optimization techniques: automated exposure control; mA and/or kV adjustment per patient size (includes targeted exams where dose is matched to clinical indication); or iterative reconstruction. Contrast material: ISOVUE 370; Contrast volume: 100 ml; Contrast route: INTRAVENOUS (IV); COMPARISON: 1. CT HEAD/BRAIN WO CON 11/03/2023 2:08 AM 2. AGHEADWO MR angio head wo con 12/26/2018 11:02 AM 3. BRAINWO MR head/brain wo con 12/19/2018 8:03 AM FINDINGS: ANTERIOR CIRCULATION: Right internal carotid artery: Intracranial segment is patent with no significant stenosis. No aneurysm. Right middle cerebral artery: No occlusion or significant stenosis. No aneurysm. Right anterior cerebral artery: No occlusion or significant stenosis. No aneurysm. Left internal carotid artery: Intracranial segment is patent with no significant stenosis. No aneurysm. Left middle cerebral artery: No occlusion or significant stenosis. No aneurysm. Left anterior cerebral artery: No occlusion or significant stenosis. No aneurysm. POSTERIOR CIRCULATION: Right vertebral artery: No occlusion or significant stenosis. No aneurysm. Left vertebral artery: No occlusion or significant stenosis. No aneurysm. Basilar artery: No occlusion or significant stenosis. No aneurysm. Right posterior cerebral artery: No occlusion or significant stenosis. No aneurysm. Left posterior cerebral artery: No occlusion or significant stenosis. No aneurysm. Brain: No definite mass, mass effect, or midline shift. Cerebral ventricles: No ventriculomegaly. Paranasal sinuses: There is extensive significant sinus mucosal disease. Dental: There is dental amalgam which causes streak artifact and mildly limits evaluation of the oral cavity. Bones/joints: Unremarkable. No acute fracture. Soft tissues: Unremarkable. Other findings: Motion artifact mildly limits evaluation. IMPRESSION: 1. There is extensive significant sinus mucosal disease. 2. No acute intracranial vascular anomaly is identified.
--- NOTE | 2023-11-03 01:11 | XR_ITS ---
PROCEDURE INFORMATION: Exam: XR Chest Exam date and time: 11/03/2023 2:16 AM Age: 67 years old Clinical indication: Pain; Angina pectoris; Additional info: Cp TECHNIQUE: Imaging protocol: Radiologic exam of the chest. Views: 1 view. COMPARISON: CT ANGIO CHEST 11/03/2023 2:14 AM FINDINGS: Lungs: Low lung volumes and bronchovascular crowding. Planning is quite represent mild pulmonary congestion. Minimal dependent opacities which could represent mild atelectasis. Pleural spaces: The costophrenic angles are slightly obscured which could be related to superimposition of breast shadows. No large pleural effusion. No pneumothorax. Heart/Mediastinum: The cardiomediastinal silhouette is enlarged. The main pulmonary artery is mildly prominent. Vasculature: The thoracic aorta is tortuous and atherosclerotic. Bones/joints: There are degenerative changes of the spine and shoulder joints. IMPRESSION: 1. Low lung volumes and bronchovascular crowding. Findings are nonspecific and could be seen with mild pulmonary congestion/subtle pulmonary edema, although atypical infection can give a similar appearance. Clinical correlation is recommended. 2. Enlarged cardiomediastinal silhouette. 3. No large pleural effusion or pneumothorax .
--- NOTE | 2023-11-03 01:14 | ECG_ITS ---
APPROVED REPORT Exam: Resting ECG HR:83 bpm ECG Measurements Heart Rate 83 AXES AR 105 P 70 QRSd 89 QRS 79 QT 363 T 79 QTc 403 Conclusion SINUS RHYTHM WITH SHORT AR INTERVAL NONSPECIFIC ST & T-WAVE ABNORMALITY No STEMI Electronically signed by : ANITA NAVA, 11/03/2023 01:39:16
--- NOTE | 2023-11-03 01:17 | HMH.EDGENADL ---
Discharge Plan Disposition Patient Disposition: Admitted Condition: Good Clinical Impressions Clinical Impression: Nasal congestion, Back pain, Acute flank pain, Chest pain, Elevated troponin Discharge ED Provider: Silva Hull Adult HPI General Chief complaint: Back Pain/Injury Stated complaint: used vinegar nasally, pain in back and legs Time Seen by Provider: 11/03/23 01:04 Mode of Arrival: Wheelchair Source of Information: Patient and Spouse Limitations: No Limitations Description of Symptoms (Recalled from ER Triage Doc. by RN): Patient arrived via wheelchair from home. Spouse reports that they use nasal rinses before bed every night and the patient accidentally placed white vinegar in to nasal rinse and rinsed with 4oz of white vinegar. Currently patient denies nasal pain, reports nasal congestion. Patient is holding left lower back, reporting severe generalized back pain and right leg pain that started suddenly around 2330. Spouse reports patient fell at home on steps earlier in the day, but patient denies any pain from the fall. History of Present Illness HPI narrative: 67-year-old female with a history of neuropathy presents to the ER with multiple complaints. Spouse helps provide history. Reportedly patient and spouse frequently use nasal rinses before bedtime with saline, but tonight patient accidentally rinse her nose with white vinegar. She was having burning of the nose but no other abnormalities. Spouse states he went into the bedroom shortly thereafter and patient was writhing on the floor in pain complaining of right hip and back pain. She also reported having chest pain and headache. Reportedly she fell at home earlier in the day but did not have any injuries from that fall. Her pain suddenly started tonight around 11:30 PM. She has denied any dysuria, pelvic pain, hematuria, she states her chest pain is resolved, she does not still have any headache, but her blood pressure is high and she does not take blood pressure medications at home. Patient states her nose is congested but no longer having pain. She is describing the pain starting in her low back and radiating around her right flank into her right glute and hip and traveling down the back of the leg. No numbness, tingling, weakness. Patient has not taken any medications for her symptoms. Related Data Previous Rx's Medication Instructions Recorded amoxicillin 875 mg-potassium 1 tab PO BID #10 tabs 11/03/23 clavulanate 125 mg tablet fluticasone propionate 50 2 spray intranasal DAILY 7 days 11/03/23 mcg/actuation nasal #16 grams spray,suspension (Allergy Relief (fluticasone)) methylprednisolone 4 mg tablets in 4 mg PO BID #21 tabs 11/03/23 a dose pack Allergies Allergy/AdvReac Type Severity Reaction Status Date / Time gabapentin Allergy Verified 11/03/23 02:25 [facility] Disclaimer: The information contained in this section may have been updated after the patient was seen, as this information can be updated by other users. Medical History (Updated 11/03/23 @ 05:03 by Silva Hull MD) Arthritis Social History Smoking Status: Never smoker alcohol intake: never current occupational status: employed Travel in the last 8 weeks: None household members: spouse housing: house ROS Obtained: Yes All systems reviewed & no additional complaints except as documented Constitutional Constitutional: Denies chills, Denies fever(s), Reports headache(s) and Denies weakness Eyes Eyes: Denies change in vision ENT Ears, Nose, Mouth, and Throat: Denies dizziness, Reports headache(s), Reports nasal congestion and Denies sore throat Cardiovascular Cardiovascular: Reports chest pain, Denies dyspnea and Denies leg edema Respiratory Respiratory: Denies cough and Denies dyspnea Gastrointestinal Gastrointestingal: Denies constipation, diarrhea, nausea or vomiting Genitourinary Female Genitourinary: Denies dysuria, Reports flank pain and Denies hematuria Musculoskeletal Musculoskeletal: Denies arthralgias, Reports back pain, Denies myalgias, Denies numbness and Denies tingling Integumentary/Breasts Skin/Breast: Denies change in pigmentation Neurologic Neurologic: Denies dizziness, Reports headache(s), Denies numbness, Denies tingling and Denies weakness Physical Exam General General appearance: alert and in no apparent distress Head Head exam: atraumatic and normocephalic Eye Eye exam: Present PERRL and EOMI ENT ENT exam: Present mucous membranes moist and other (Nasal mucosa is normal-appearing, patient is able to breathe through the nose) Neck Neck exam: Present normal inspection and full ROM Chest Chest inspection: Present symmetric chest wall rise Respiratory Respiratory exam: Absent normal lung sounds bilaterally, respiratory distress, wheezes or stridor Cardiovascular Cardiovascular exam: Present regular rate and normal rhythm Abdominal Exam Abdominal exam: Present soft; Absent distention, tenderness, guarding or rebound Comment: No CVA tenderness Extremities Exam Extremities exam: Present full ROM and other (no findings of injury); Absent tenderness or joint swelling Back Exam Back exam: Absent CVA tenderness (R), CVA tenderness (L), paraspinal tenderness, sciatic notch tenderness (R), straight leg raise (R) or straight leg raise (L) Neurological Exam Neurological exam: Present alert and oriented X3; Absent motor sensory deficit Psychiatric Psychiatric exam: Present normal affect and normal mood Skin Skin exam: Present warm and dry Medical Decision Making Sergio Inquiry Pt receiving controlled substance: No Vital Signs: 11/03/23 00:51 11/03/23 01:27 11/03/23 02:30 Temperature 97.2 F L Temperature Source Temporal Artery Scan Pulse Rate 84 85 Pulse Rate [Left Radial] 82 Respiratory Rate 22 Blood Pressure 168/94 H 155/89 H Blood Pressure [Left Arm] 172/96 H Blood Pressure Mean 118 112 Blood Pressure Mean [Left Arm] 121 Blood Pressure Source [Left Arm] Automatic Cuff Blood Pressure Position [Left Arm] Sitting 02 Sat by Pulse Oximetry 100 100 100 Oxygen Delivery Method Room Air 11/03/23 03:00 Temperature Temperature Source Pulse Rate Pulse Rate [Left Radial] Respiratory Rate Blood Pressure 143/89 H Blood Pressure [Left Arm] Blood Pressure Mean 105 Blood Pressure Mean [Left Arm] Blood Pressure Source [Left Arm] Blood Pressure Position [Left Arm] 02 Sat by Pulse Oximetry Oxygen Delivery Method Lab Data Lab Results 11/03/23 01:23: WBC 10.8, RBC 4.25, Hgb 13.9, Hct 42.2, MCV 99.3 H, MCH 32.8 H, MCHC 33.1, RDW 13.2, Plt Count 190, MPV 8.5, Neut % (Auto) 77.9, Lymph % (Auto) 16.7, [place] % (Auto) 4.7, Eos % (Auto) 0.3, Baso % (Auto) 0.5, Neut # (Auto) 8.4 H, Lymph # (Auto) 1.8, [place] # (Auto) 0.5, Eos # (Auto) 0.0, Baso # (Auto) 0.1, Sodium 138, Potassium 3.7, Chloride 104, Carbon Dioxide 27, Anion Gap 10.7, BUN 15, Creatinine 0.50 L, Estimated Creat Clear 52, Estimated GFR 123, Est GFR ( Amer) 149, Glucose 151 H, Calcium 9.9, Total Bilirubin 0.6, AST 42 H, ALT 26, Alkaline Phosphatase 66, Troponin I < 0.01, Total Protein 8.1, Albumin 4.8, Globulin 3.3 H, Albumin/Globulin Ratio 1.5 11/03/23 02:36: Urine Color Yellow, Urine Appearance Clear, Urine pH 7.0, Ur Specific [place] 1.015, Urine Protein Negative, Urine Glucose (UA) Negative, Urine Ketones Trace, Urine Blood Negative, Urine Nitrate Negative, Urine Bilirubin Negative, Urine Urobilinogen 0.2, Ur Leukocyte Esterase 1+ A, Urine RBC None, Urine WBC 5-10, Ur Squamous Epith Cells Occasional, Urine Bacteria Trace 11/03/23 04:10: Troponin I 0.04 H 11/03/23 01:23 11/03/23 01:23 Orders (Tests/Meds): ED MEDICATIONS Generic Name Dose Route Start Last Admin Trade Name Freq PRN Reason Stop Dose Admin Amoxicillin/Clavulanate Potassium 1 each 11/03/23 04:57 Amoxicillin/Clavulanate Potassium 875/125mg Tablet PO 11/03/23 04:58 ONCE ONE Fluticasone Propionate 2 spray 11/03/23 04:57 Fluticasone Prop 50mcg Nasal [place] 16gm NS 11/03/23 04:58 ONCE ONE Discontinued Medications Generic Name Dose Route Start Last Admin Trade Name Freq PRN Reason Stop Dose Admin Acetaminophen 1,000 mg 11/03/23 01:42 11/03/23 01:45 Acetaminophen 1,000mg/100ml Vial IV 11/03/23 01:43 1,000 mg ONCE ONE Administration Lactated Ringer's 500 mls @ 999 mls/hr 11/03/23 01:12 11/03/23 01:38 Lactated Ringer's 500ml IV 11/03/23 01:42 Not Given .Q31M ONE Lactated Ringer's 1,000 mls @ 999 mls/hr 11/03/23 01:36 11/03/23 01:37 Lactated Ringer's 1000 Ml Bag IV 11/03/23 02:36 999 mls/hr .Q1H1M ONE Administration Iopamidol 186 ml 11/03/23 02:14 11/03/23 02:16 Iopamidol-370 (76%);100ml Bottle IV 11/03/23 02:15 186 ml ONCE ONE Administration Ketorolac Tromethamine 15 mg 11/03/23 02:30 11/03/23 03:03 Ketorolac 30mg/Ml Vial IV 11/03/23 02:31 15 mg ONCE ONE Administration Methocarbamol 500 mg 11/03/23 01:13 11/03/23 01:30 Methocarbamol 500mg Tablet PO 11/03/23 01:14 500 mg ONCE ONE Administration Morphine Sulfate 4 mg 11/03/23 01:12 11/03/23 01:27 Morphine 4mg/Ml Syringe IV 11/03/23 01:13 4 mg ONCE ONE Administration Ondansetron HCl 4 mg 11/03/23 01:12 11/03/23 01:27 Ondansetron 4mg/2ml Vial IV 11/03/23 01:13 4 mg ONCE ONE Administration Promethazine HCl 12.5 mg 11/03/23 01:58 11/03/23 02:02 Promethazine Hcl 25mg/Ml 1ml Vial IV 11/03/23 01:59 12.5 mg ONCE ONE Administration Sodium Chloride 2 ml 11/03/23 01:11 11/03/23 01:31 Sodium Chloride Nasal [place] 44ml NS 11/03/23 01:12 2 ml ONCE ONE Administration Sodium Chloride 25 ml 11/03/23 01:58 11/03/23 02:03 Sodium Chloride 0.9% 25ml Bag IV 11/03/23 01:59 25 ml ONCE ONE Administration Sodium Chloride 10 ml 11/03/23 02:14 11/03/23 02:16 Sodium Chloride 0.9% 10ml Syr (Rad Only) IV 11/03/23 02:15 10 ml ONCE ONE Administration Sodium Chloride 80 ml 11/03/23 02:14 11/03/23 02:16 0.9 % Sodium Chloride 50 Ml Vial IV 11/03/23 02:15 80 ml ONCE ONE Administration ORDERS Category Date Time Status CT angio abdomen pelvis Stat Cat Scan 11/03/23 01:[address] angio head Stat Cat Scan 11/03/23 01:[address] angio neck Stat Cat Scan 11/03/23 01:[address] head/brain wo con Stat Cat Scan 11/03/23 01:08 Completed CTA Chest [CT angio chest - dissection] Stat Cat Scan 11/03/23 01:08 Completed CXR --portable [XR chest portable] Stat Exams 11/03/23 01:11 Completed XR hip RT 2-3V w/pelvis Stat Exams 11/03/23 01:08 Completed CBC w/Auto Diff [Complete Blood Count Auto Diff] Stat Lab 11/03/23 01:23 Completed CMP [Comprehensive Metabolic Panel] Stat Lab 11/03/23 01:23 Completed Trop I [Troponin I] Stat Lab 11/03/23 01:23 Completed Troponin I Q3H Lab 11/03/23 04:10 Completed Troponin I Q3H Lab 11/03/23 07:15 Ordered Urinalysis and Microscopic Stat Lab 11/03/23 02:36 Completed Urine Culture Stat Micro 11/03/23 02:36 Received HEART Score History (anamnesis): Moderately suspicious ECG: Non-specific disturbance Age: >65 years Risk factors: 1-2 risk factors Troponin: 1-3x normal limit HEART Score: 6 Medical Decision Narrative: In summary, this 67year old female presents to the emergency department today with concerns of accidentally using vinegar in her nose instead of saline, hip pain, back pain, also had chest pain and headache earlier. On initial evaluation patient is hypertensive but otherwise hemodynamically stable, afebrile, she appears uncomfortable but does not have any reproducible pain in her back, hip, or extremities. She does not have any signs of injury from fall earlier today, she states she is not currently having chest pain, cardiopulmonary exam is reassuring, no deficits on neuroexam. Differential diagnosis includes but is not limited to nephrolithiasis, ureterolithiasis, urinary tract infection, muscle spasm, radiculopathy, ACS, dissection. No findings of cauda equina associated with patient's back/hip pain. No saddle anesthesia, incontinence, or retention. Nasal mucosal exam reassuring. No hypoxia. Based on these concerns, I ordered broad workup including cardiac workup, CT angiography, and urine studies. ECG personally interpreted demonstrates normal sinus rhythm, rate 83, short NH but no delta wave, normal axis, no STEMI. Patient received IV fluids, morphine, Robaxin, Zofran, ofirmev, saline nasal spray for treatment. Patient had emesis and CT scan despite having received these medications. She received IV Phenergan. Labs personally reviewed demonstrate no leukocytosis, no anemia, CMP without abnormality in sodium, potassium, chloride, or calcium. Good kidney function, trace elevation in AST, nonspecific and nonactionable at this time, initial troponin undetectable at less than 0.01, given acute onset of symptoms recently, repeat troponin will be necessary. UA negative for signs of infection. XR personally interpreted demonstrates no acute intrathoracic abnormality on my personal interpretation, radiology also comments on nonspecific findings but these do not correlate clinically for infection or pulmonary edema. See the read for full interpretation. Right hip x-ray personally interpreted does not demonstrate any fracture, malalignment, or other osseous injury. See radiology read for full interpretation. CT imaging personally interpreted demonstrate no acute intracranial bleed, mass, or midline shift, no abnormalities on CT angiography of the head or neck, CTA chest was personally interpreted and does not demonstrate any aortic dissection or obvious PE, CT abdomen pelvis does not demonstrate any aortic abnormality, no obvious renal or ureteral calculus is identified though I do believe the right ureter is may be slightly larger than the left, potentially a sequela of a calculus that passed spontaneously given patient's clinical presentation. Radiology reads do discuss thickening of the sinus mucosa. In the setting of accidental nasal vinegar flush, I would like to discuss this with the specialist. After identifying no vascular abnormalities, Toradol was administered. Patient was placed into ED observation at 0305 for serial troponins and continued symptomatic management. Serial troponins are to rule out evolving cardiac insult given the patient's chest pain, she was on the monitor and frequently reassessed while in observation. She did not have any worsening of condition and continued to be free of chest pain. On reassessment patient is resting comfortably, her symptoms have dramatically improved. She is now able to lay in any position comfortably. She has not had any further emesis. I called [facility] and I had an interactive discussion with Dr. Fried. After discussing the images and patient's current symptoms, he did recommend short course of antibiotic prophylaxis to hopefully prevent sinus infection, he also recommended Flonase and Medrol Dosepak. He stated the patient could take Afrin if she still has congestion after these medications, but gave her strict recommendation for only 3 days of use at most. Augmentin, fluticasone, and Medrol were all prescribed for the patient. I have also given the patient local ENT clinic phone number and instructed her to call for follow-up. Repeat troponin was performed and is newly elevated at 0.04 which is a significant delta. Repeat EKG was ordered and on my personal interpretation demonstrates normal sinus rhythm, rate 83, normal axis, I do not appreciate significant dynamic changes, there are trace depressions in V4 and V5 but these are similar to the initial EKG. The QRS complexes in lead III and aVF are also lower voltage than previous ECG. I called cardiology and discussed this patient with Dr. Ruiz. After reviewing patient's EKG and discussing the case, he is recommending admission for serial troponins and further evaluation. Patient and are amenable to this plan. Since patient is staying inpatient, I administered 1 dose of Augmentin and fluticasone. I called the hospitalist and discussed the findings and recommendations from Dr. Ruiz. I also discussed the recommendations from ENT. Patient has been accepted for admission. I was anticipating the patient being able to discharge so her discharge instructions and orders had already been prepared. Unfortunately with this change in troponin she will not be discharged. Disregard the associated discharge instructions. I have discussed this with Brayden, the hospitalist as well. Patient was accepted to hospitalist for admission at 0455. Total time in ED observation was 1 hour and 50 minutes. Critical Care Critical Care Time Critical Care Time: No
[2023-11-03] MEDS: MORPHINE 4MG/ML SYRINGE 4 MG IV (01:27)
[2023-11-03] MEDS: ONDANSETRON 4MG/2ML VIAL 4 MG IV (01:27)
[2023-11-03] MEDS: METHOCARBAMOL 500MG TABLET 500 MG PO (01:30)
[2023-11-03] MEDS: SODIUM CHLORIDE NASAL SPRAY 44ML NS (01:31)
[2023-11-03 01:36] LABS: Basophils # 0.1 K/mm3 (0-0.2); Basophils % 0.5 % (0.1-2.0); Eosinophils % 0.3 % (0.1-12.0); Hematocrit 42.2 % (37.0-47.0); Hemoglobin 13.9 g/dL (12.2-16.2); Lymphocytes # 1.8 K/mm3 (0.7-4.5); Lymphocytes % 16.7 % (10-50); Mean Corpuscular HGB Conc 33.1 g/dL (31.8-35.4); Mean Corpuscular Hemoglobin 32.8 pg (27.0-31.2); Mean Corpuscular Volume 99.3 fl (81-99); Mean Platelet Volume 8.5 fl (7.4-10.4); Monocytes # 0.5 K/mm3 (0.1-1.0); Monocytes % 4.7 % (1.7-9.3); Neutrophils # 8.4 K/mm3 (1.8-7.8); Neutrophils % 77.9 % (37.0-80.0); Platelet Count 190 K/mm3 (142-424); Red Blood Count 4.25 M/mm3 (4.20-5.40); Red Cell Distribution Width 13.2 % (11.5-17.5); White Blood Count 10.8 K/mm3 (4.8-10.8)
[2023-11-03] MEDS: LACTATED RINGERS 1000ML 1,000 ML 999 ML IV (01:37)
[2023-11-03 01:38] LABS: Chloride 104 mmol/L (98-107); Potassium 3.7 mmoL/L (3.5-5.1); Sodium 138 mmol/L (136-145)
[2023-11-03 01:40] LABS: Blood Urea Nitrogen 15 mg/dl (7-17); Creatinine Clearance Estimated 52 mL/min (50-200); Estimated Glomerular Filt Rate 123 ml/min (>60); GFR (African American) 149 ML/MIN (>60)
--- NOTE | 2023-11-03 01:40 | PC.NURSE ---
Patient and family elaborate to this RN that originally patient had sharp central chest pain, that then became a headache, and then moved into her back and right leg. While speaking with patient, patient reports that the headache has came back. Patient appears very uncomfortable on stretcher at this time, reports no pain relief, notified provider.
[2023-11-03 01:41] LABS: Alanine Aminotransferase 26 U/L (12-78); Albumin Level 4.8 g/dl (3.5-5.0); Albumin/Globulin Ratio 1.5 (1.1-1.8); Alkaline Phosphatase 66 U/L (38-126); Anion Gap 10.7 mEq/L (5-15); Aspartate Amino Transferase 42 U/L (14-36); Bilirubin,Total 0.6 mg/dl (0.2-1.3); Calcium 9.9 mg/dl (8.4-10.2); Carbon Dioxide 27 mmol/L (22.0-30.0); Globulin 3.3 g/dL (1.3-3.2); Glucose 151 mg/dl (74-100); Total Protein,Serum 8.1 g/dl (6.3-8.2)
[2023-11-03] MEDS: ACETAMINOPHEN 1,000MG/100ML VIAL 1000 MG IV (01:45)
[2023-11-03 01:56] LABS: Troponin I < 0.01 ng/ml (0.00-0.034)
[2023-11-03] MEDS: PROMETHAZINE HCL 25MG/ML 1ML VIAL 12.5 MG IV (02:02)
[2023-11-03] MEDS: SODIUM CHLORIDE 0.9% 25ML BAG 25 ML IV (02:03)
[2023-11-03] MEDS: SODIUM CHLORIDE 0.9% 10ML SYR (RAD ONLY) 10 ML IV (02:16)
[2023-11-03] MEDS: 0.9 % SODIUM CHLORIDE 50 ML VIAL 80 ML IV (02:16)
[2023-11-03] MEDS: IOPAMIDOL-370 (76%);100ML BOTTLE 186 ML IV (02:16)
--- NOTE | 2023-11-03 02:37 | PC.NURSE ---
Assisted patient to bathroom. Patient urinated approximately 900ml in specimen collection hat. Urine sample collected and sent to lab. Assisted patient back to stretcher with assist x 1.
[2023-11-03 02:40] LABS: Appearance,Urine CLEAR (Clear); Bilirubin,Urine Negative (Negative); Blood, Urine Negative (Negative); Color,Urine YELLOW (Yellow); Glucose,Urine (UA) Negative (Negative); Ketones,Urine TRACE (Negative); Leukocyte Esterase,Urine 1+ (Negative); Microscopic, Urine URINE MICROSCOPIC (MICROSCOPIC); Nitrate,Urine Negative (Negative); Protein,Urine Negative (Negative); Specific Gravity, Urine 1.015 (1.005-1.030); Urobilinogen,Urine 0.2 EU/dl (0.2)
[2023-11-03 02:51] LABS: Bacteria,Urine Trace /lpf; Squamous Epithelial Cell,Urine Occasional #/hpf (0-5)
[2023-11-03] MEDS: KETOROLAC 30MG/ML VIAL 15 MG IV (03:03)
--- NOTE | 2023-11-03 03:46 | PC.NURSE ---
call placed to [facility]. spoke with salvatore. waiting on on-call for ENT. images sent to [place] via rad. spoke with uri thapa.
--- NOTE | 2023-11-03 03:48 | PC.NURSE ---
speaking with dr elizabeth savage, on-call ENT
--- NOTE | 2023-11-03 04:05 | PC.NURSE ---
Provided patient with bottled water for PO challenge. Patient ambulated to restroom without assistance at this time. Patient reports pain is greatly improved in all positions at this time. Rates pain 2/10 at this time.
[2023-11-03 04:34] LABS: Troponin I 0.04 ng/ml (0.00-0.034)
--- NOTE | 2023-11-03 04:44 | ECG_ITS ---
APPROVED REPORT Exam: Resting ECG HR:83 bpm ECG Measurements Heart Rate 83 AXES MN 126 P 82 QRSd 85 QRS 54 QT 389 T 63 QTc 429 Conclusion SINUS RHYTHM MINIMAL ST DEPRESSION [0.025+ mV ST DEPRESSION] QRS with decreased amplitude in III and aVF No STEMI or stemi equivalent Electronically signed by : ANITA NAVA, 11/03/2023 07:00:37
--- NOTE | 2023-11-03 04:49 | PC.NURSE ---
cardiology paged by edouard Davies
--- NOTE | 2023-11-03 04:54 | PC.NURSE ---
Provider speaking with hospitalist regarding admission.
--- NOTE | 2023-11-03 04:56 | PC.NURSE ---
government instructor spoke with [facility] lab[facility] for bed request.
--- NOTE | 2023-11-03 05:05 | PC.NURSE ---
referral sent to [facility]
[2023-11-03] MEDS: AMOXICILLIN/CLAVULANATE POTASSIUM 875/125MG TABLET 1 EACH PO ×3 (05:07→20:42)
--- NOTE | 2023-11-03 05:14 | P.HP_ITS ---
<Statement entered by Cami Durham MD - 11/04/23 12:26> Attending attestation Patient was seen and evaluated at the bedside myself, agree with OSMAN note. History of Present Illness *Admission Date: 11/03/23 *Reason for visit:: accidentally washed nose with vinager *History of present illness: This is a 67-year-old female with a PMHx of neuropathy, chronic sinusitis, presented to the ER with multiple complaints. Spouse at bedside helped provide history. Reportedly patient and spouse frequently use nasal rinses before bedtime with saline, but tonight patient accidentally rinse her nose with white vinegar. She was having burning of the nose but no other abnormalities. Spouse states he went into the bedroom shortly thereafter and patient was writhing on the floor in pain complaining of right hip and back pain. She also reported having chest pain and headache. Reportedly she fell at home earlier in the day but did not have any injuries from that fall. Her pain suddenly started tonight around 11:30 PM. She has denied any dysuria, pelvic pain, hematuria, she states her chest pain is resolved, she does not still have any headache, but her blood pressure is high and she does not take blood pressure medications at home. Patient states her nose is congested but no longer having pain. She is describing the pain starting in her low back and radiating around her right flank into her right glute and hip and traveling down the back of the leg. No numbness, tingling, weakness. Patient has not taken any medications for her symptoms. Admitted for management and treatment. [facility] Disclaimer: The information contained in this section may have been updated after the patient was seen, as this information can be updated by other users. Medical History (Updated 11/03/23 @ 06:27 by Slava Brothers APRN) Neuropathy Osteoporosis Arthritis Surgical History (Updated 11/03/23 @ 05:56 by Mi Nobles RN) Hx of tonsillectomy History of hysterectomy Family History (Updated 11/03/23 @ 05:55 by Mi Nobles RN) Other H/O: hysterectomy Social History Smoking Status: Never smoker alcohol intake: never current occupational status: employed Travel in the last 8 weeks: None household members: spouse housing: house Review of Systems Review of Systems Review of systems:: pertinent systems reviewed and negative unless documented below Constitutional Constitutional: Reports headache(s) and Denies weakness ENT Ears, Nose, Mouth, and Throat: Denies dizziness and Reports headache(s) *Musculoskeletal Musculoskeletal: Denies numbness and Denies tingling *Neurologic Neurologic: Denies dizziness, Reports headache(s), Denies numbness, Denies tingling and Denies weakness Meds Home Medications and Allergies Home Medications Medication Instructions Recorded Confirmed Type amoxicillin 875 mg-potassium 1 tab PO BID #10 tabs 11/03/23 Rx clavulanate 125 mg tablet cholecalciferol (vitamin D3) 10 1 unit PO DAILY 11/03/23 11/03/23 History mcg (400 unit) chewable tablet (Vitamin D3) fluticasone propionate 50 2 spray intranasal DAILY 7 days 11/03/23 Rx mcg/actuation nasal #16 grams spray,suspension (Allergy Relief (fluticasone)) ibandronate 150 mg tablet 150 mg PO MONTHLY 11/03/23 11/03/23 History methylprednisolone 4 mg tablets in 4 mg PO BID #21 tabs 11/03/23 Rx a dose pack New Prescriptions to Start Prescriptions: amoxicillin-pot clavulanate [place],[facility] fluticasone propionate [Allergy Relief (fluticasone)] [place] methylprednisolone [place],[facility] Allergies Allergy/AdvReac Type Severity Reaction Status Date / Time gabapentin Allergy Verified 11/03/23 02:25 Exam Data for Last 24 hours Vital signs and Labs for Last 24 Hours: Temp Pulse Resp BP Pulse Ox O2 Del Method 98.1 F 70 22 145/85 H 97 Room Air 11/03/23 04:00 11/03/23 04:00 11/03/23 00:51 11/03/23 04:00 11/03/23 04:00 11/03/23 04:00 Laboratory Results - last 24 hr 11/03/23 01:23: WBC 10.8, RBC 4.25, Hgb 13.9, Hct 42.2, MCV 99.3 H, MCH 32.8 H, MCHC 33.1, RDW 13.2, Plt Count 190, MPV 8.5, Neut % (Auto) 77.9, Lymph % (Auto) 16.7, [place] % (Auto) 4.7, Eos % (Auto) 0.3, Baso % (Auto) 0.5, Neut # (Auto) 8.4 H, Lymph # (Auto) 1.8, [place] # (Auto) 0.5, Eos # (Auto) 0.0, Baso # (Auto) 0.1, Sodium 138, Potassium 3.7, Chloride 104, Carbon Dioxide 27, Anion Gap 10.7, BUN 15, Creatinine 0.50 L, Estimated Creat Clear 52, Estimated GFR 123, Est GFR ( Amer) 149, Glucose 151 H, Calcium 9.9, Total Bilirubin 0.6, AST 42 H, ALT 26, Alkaline Phosphatase 66, Troponin I < 0.01, Total Protein 8.1, Albumin 4.8, Globulin 3.3 H, Albumin/Globulin Ratio 1.5 11/03/23 02:36: Urine Color Yellow, Urine Appearance Clear, Urine pH 7.0, Ur Specific [place] 1.015, Urine Protein Negative, Urine Glucose (UA) Negative, Urine Ketones Trace, Urine Blood Negative, Urine Nitrate Negative, Urine Bilirubin Negative, Urine Urobilinogen 0.2, Ur Leukocyte Esterase 1+ A, Urine RBC None, Urine WBC 5-10, Ur Squamous Epith Cells Occasional, Urine Bacteria Trace 11/03/23 04:10: Troponin I 0.04 H I & O for Last 24 hours: Intake & Output 10/31/23 11/01/23 11/02/23 11/03/23 23:59 23:59 23:59 23:59 Weight 58.967 kg Constitutional Constitutional: no acute distress *Routine HEENT Exam Head: Present normocephalic Eye: Present EOMI and PERRL ENT: Present mucous membranes moist *Routine Neck Exam Neck: Present supple; Absent lymphadenopathy *Routine Respiratory Exam Respiratory: Present CTA bilaterally *Routine Cardiovascular Exam Cardiovascular: Present RRR *Routine Abdominal Exam Abdominal: Present soft and normoactive bowel sounds; Absent tenderness *Routine Rectal Exam Rectal:: deferred *Routine Genitalia Exam Genitalia:: deferred *Routine Extremities Exam Extremities: Absent cyanosis, clubbing or edema *Routine Skin Exam Skin: Present warm; Absent rash *Routine Neurological Exam Neurological: Present alert and oriented X3 H&P: Result Imaging and Cardiology EKG: Status: image reviewed by me and final report CT scan - abdomen: Status: image reviewed by me, Preliminary report and final report CT scan - head: Status: image reviewed by me, Preliminary report and final report CT scan - chest: Status: image reviewed by me, Preliminary report and final report Chest x-ray: Status: image reviewed by me, Preliminary report and final report Assessment and Plan *Assessment and plan (1) Toxic effect of corrosive acids and acid-like substances, accidental (unintentional), initial encounter: Status: Acute Category: Medical Code(s): T54.2X1A - Toxic effect of corrosive acids and acid-like substances, accidental (unintentional), initial encounter (2) Chronic ethmoidal sinusitis: Status: Acute Category: Medical Code(s): J32.2 - Chronic ethmoidal sinusitis (3) History of frequent nasal spray use: Status: Acute Category: Medical Code(s): Z87.898 - Personal history of other specified conditions (4) Elevated troponin: Status: Acute Category: Medical Code(s): R79.89 - Other specified abnormal findings of blood chemistry (5) Chest pain: Status: Acute Qualifiers: Chest pain type: unspecified Qualified Code(s): R07.9 - Chest pain, unspecified Category: Medical Code(s): R07.9 - Chest pain, unspecified (6) Back pain: Status: Acute Qualifiers: Back pain location: low back pain Chronicity: chronic Back pain laterality: unspecified Sciatica presence: unspecified whether sciatica present Qualified Code(s): M54.50 - Low back pain, unspecified; G89.29 - Other chronic pain Category: Medical Code(s): M54.9 - Dorsalgia, unspecified Plan 67-year-old female with a PMHx of neuropathy, chronic sinusitis, presented to the ER with multiple complaints. Spouse at bedside helped provide history. Reportedly patient and spouse frequently use nasal rinses before bedtime with saline, but tonight patient accidentally rinse her nose with white vinegar. also c/o CP, hip pain after previously fell at home with no sustained injury. head to toe CT screening negative for acute trauma. CT of head concerning for severe extensive chronic sinusitis with near-complete opacification of the ethmoid air cells. Labs are grossly unremarkable. Essential elevated troponin. EKG does not show any ST change, findings discussed with ENT at . Recommend medical management with antibiotics and anti-inflammatory. Discussed with the ED for admission. Plan as follow: -Accidentally nose spray with vinegar. Initial encounter: Chronic severe extensive sinusitis. History of frequent nasal spray use: Admit patient for medical services and monitor Follow recommendation from ENT at . Started on was Augmentin twice daily Solu-Medrol 20 mg IV twice daily Obtain MRSA swab and culture Pain management. Tylenol as needed -Elevated troponin: Presented with intermittent chest pain: Currently chest pain-free. Trending troponin Cardiology consult surveillance monitor Nitroglycerin sublingual for chest pain Patient presented hypertensive not on current medication no previous history Continue monitor blood pressure History of chronic pain Lovenox for DVT prophylaxis. On Protonix for GI protection Full code
--- NOTE | 2023-11-03 05:15 | PC.NURSE ---
Nurse to nurse report given to Mi FUENTES via telephone at this time.
--- NOTE | 2023-11-03 05:25 | PC.NURSE ---
PT ARRIVED TO FLOOR AT THIS TIME
[2023-11-03] MEDS: METHYLPREDNISOLONE SOD SUCC 40MG VIAL 20 MG IV ×2 (06:57→16:32)
[2023-11-03 07:26] LABS: Basophils % 0.3 % (0.1-2.0); Eosinophils % 0.1 % (0.1-12.0); Hematocrit 39.2 % (37.0-47.0); Hemoglobin 12.9 g/dL (12.2-16.2); Lymphocytes # 1.2 K/mm3 (0.7-4.5); Lymphocytes % 11.4 % (10-50); Mean Corpuscular HGB Conc 32.8 g/dL (31.8-35.4); Mean Corpuscular Hemoglobin 33.2 pg (27.0-31.2); Mean Corpuscular Volume 101.3 fl (81-99); Mean Platelet Volume 8.7 fl (7.4-10.4); Monocytes # 0.4 K/mm3 (0.1-1.0); Neutrophils # 8.9 K/mm3 (1.8-7.8); Neutrophils % 84.2 % (37.0-80.0); Platelet Count 172 K/mm3 (142-424); Red Blood Count 3.87 M/mm3 (4.20-5.40); Red Cell Distribution Width 13.3 % (11.5-17.5); White Blood Count 10.5 K/mm3 (4.8-10.8)
[2023-11-03 07:33] LABS: Alanine Aminotransferase 28 U/L (12-78); Albumin Level 4.1 g/dl (3.5-5.0); Albumin/Globulin Ratio 1.4 (1.1-1.8); Alkaline Phosphatase 46 U/L (38-126); Anion Gap 11.6 mEq/L (5-15); Aspartate Amino Transferase 40 U/L (14-36); Bilirubin,Total 0.5 mg/dl (0.2-1.3); Blood Urea Nitrogen 12 mg/dl (7-17); Calcium 9.1 mg/dl (8.4-10.2); Carbon Dioxide 27 mmol/L (22.0-30.0); Chloride 100 mmol/L (98-107); Creatinine Clearance Estimated 52 mL/min (50-200); Estimated Glomerular Filt Rate 123 ml/min (>60); GFR (African American) 149 ML/MIN (>60); Globulin 2.9 g/dL (1.3-3.2); Glucose 145 mg/dl (74-100); Magnesium 1.5 mg/dl (1.6-2.3); Potassium 3.6 mmoL/L (3.5-5.1); Sodium 135 mmol/L (136-145)
[2023-11-03 07:43] LABS: Troponin I 0.07 ng/ml (0.00-0.034)
[2023-11-03] MEDS: LORATADINE 10MG TABLET 10 MG PO (08:36)
[2023-11-03] MEDS: ENOXAPARIN 40MG/0.4ML SYRINGE 40 MG SQ (08:36)
[2023-11-03] MEDS: FLUTICASONE PROP 50MCG NASAL SPRAY 16GM 2 SPRAY NS (08:38)
[2023-11-03] MEDS: ACETAMINOPHEN 325MG TAB 650 MG PO (15:28)
--- NOTE | 2023-11-03 15:49 | PC.NURSE ---
A&OX4. TOLERATING RA WELL. PT IS UP INDEPENDENTLY IN ROOM. HAS ONLY C/O BACK/HIP PAIN THIS SHIFT, TX PER MAR WITH TYLENOL-EFFECTIVENESS NOTED. AT BEDSIDE PART OF SHIFT. NSR ON TELE. VSS.
[2023-11-03] MEDS: PANTOPRAZOLE 40MG VIAL 40 MG IV (20:42)
[2023-11-04] VITALS (7 sets, daily range): BP systolic 120–183; BP diastolic 64–82; PULSE 70–100; RESP 16–20; TEMP 36.3–36.9; O2SAT 95–98; BMI 23.9
[2023-11-04] MEDS: ACETAMINOPHEN 325MG TAB 650 MG PO ×3 (00:42→23:50)
[2023-11-04] MEDS: MORPHINE 2MG/ML SYRINGE 2 MG IV (03:30)
--- NOTE | 2023-11-04 05:37 | PC.NURSE ---
Patient has rested well this shift with no acute changes noted. Patient has complained of right hip pain this shift, has been medicated per mar with effectiveness noted. Patient has ambulated to bathroom with stand by assist. Patient has been normal sinus rhythm on tele, it is noted patient became asymptomatic tachycardia when ambulating to bathroom but recovered quickly when rested. Patient is AOx4. Lung sounds are clear to auscultation, bowel sounds active X4 no BMs noted this shift. Plan of care continues. Call rodriguez, bedside table, personal belongings and water pitcher all with in reach.
[2023-11-04] MEDS: METHYLPREDNISOLONE SOD SUCC 40MG VIAL 20 MG IV ×2 (05:53→16:40)
--- NOTE | 2023-11-04 08:24 | CT_ITS ---
PROCEDURE INFORMATION: Exam: CT Pelvis With Contrast Exam date and time: 11/04/2023 9:06 AM Age: 67 years old Clinical indication: Other: Back pain TECHNIQUE: Imaging protocol: Computed tomography of the pelvis with contrast. Radiation optimization: All CT scans at this facility use at least one of these dose optimization techniques: automated exposure control; mA and/or kV adjustment per patient size (includes targeted exams where dose is matched to clinical indication); or iterative reconstruction. Contrast material: ISOVUE; Contrast volume: 75 ml; Contrast route: IV; COMPARISON: CT ANGIO ABDOMEN PELVIS 11/03/2023 2:14 AM FINDINGS: Stomach and bowel: Visualized small bowel and colon are unremarkable. Appendix: No evidence of appendicitis. Intraperitoneal space: Unremarkable. No free air. No significant fluid collection. Lymph nodes: Unremarkable. No enlarged lymph nodes. Urinary bladder: Normal. No mass. Reproductive: Normal as visualized. Bones/joints: Unremarkable. No acute fracture. No dislocation. Soft tissues: Unremarkable. IMPRESSION: No acute findings.
--- NOTE | 2023-11-04 08:24 | CT_ITS ---
PROCEDURE INFORMATION: Exam: CTA Neck With Contrast Exam date and time: 11/04/2023 8:59 AM Age: 67 years old Clinical indication: Other: CVA TECHNIQUE: Imaging protocol: Computed tomographic angiography of the neck with contrast. Exam focused on the cervical segments of the vasculature. 3D rendering (Not supervised by radiologist): MIP and/or 3D reconstructed images were created by the technologist. Radiation optimization: All CT scans at this facility use at least one of these dose optimization techniques: automated exposure control; mA and/or kV adjustment per patient size (includes targeted exams where dose is matched to clinical indication); or iterative reconstruction. Contrast material: ISOVUE; Contrast volume: 100 ml; Contrast route: INTRAVENOUS (IV); COMPARISON: CT ANGIO NECK 11/03/2023 2:08 AM There is some motion artifact slightly limiting evaluation. FINDINGS: Right common carotid artery: No stenosis. No dissection or occlusion. Right internal carotid artery: No stenosis of the extracranial segment. No dissection or occlusion. Right external carotid artery: No occlusion or stenosis of the origin. Left common carotid artery: No stenosis. No dissection or occlusion. Left internal carotid artery: No stenosis of the extracranial segment. No dissection or occlusion. Left external carotid artery: No occlusion or stenosis of the origin. Right vertebral artery: No stenosis. No dissection or occlusion. Left vertebral artery: The left vertebral artery is diminutive. Soft tissues: Normal. No significant soft tissue swelling. Bones/joints: There are mild degenerative changes of the cervical spine. Lungs: There is a 5 mm granuloma in the right middle lobe. Coronary arteries: There are coronary artery calcifications. IMPRESSION: 1. There is some motion artifact slightly limiting evaluation. 2. There is no cervical arterial stenosis or arterial occlusion. REFERENCES: NASCET CRITERIA. The degree of stenosis in the cervical segment of the internal carotid artery is based on NASCET criteria. Normal is no stenosis. Mild is less than 50% stenosis. Moderate is 50-69% stenosis. Severe is 70% to 99% stenosis. Total occlusion is no detectable patent lumen.
--- NOTE | 2023-11-04 08:24 | CT_ITS ---
PROCEDURE INFORMATION: Exam: CT Head Without Contrast Exam date and time: 11/04/2023 8:52 AM Age: 67 years old Clinical indication: Other: CVA TECHNIQUE: Imaging protocol: Computed tomography of the head without contrast. Radiation optimization: All CT scans at this facility use at least one of these dose optimization techniques: automated exposure control; mA and/or kV adjustment per patient size (includes targeted exams where dose is matched to clinical indication); or iterative reconstruction. COMPARISON: CT ANGIO HEAD 11/03/2023 2:08 AM FINDINGS: Brain: No hemorrhage. There is minimal low attenuation in the periventricular white matter. No mass effect. Cerebral ventricles: The ventricles and CSF spaces are normal in size for age. Paranasal sinuses: There is some fluid in the maxillary and sphenoid sinuses bilaterally. There is mucoperiosteal reaction in the ethmoid air cells. Mastoid air cells: Visualized mastoid air cells are well aerated. Bones/joints: No acute fracture. Soft tissues: Unremarkable. IMPRESSION: There is no acute intracranial abnormality.
--- NOTE | 2023-11-04 08:24 | CT_ITS ---
PROCEDURE INFORMATION: Exam: CT Lumbar Spine Without Contrast Exam date and time: 11/04/2023 8:55 AM Age: 67 years old Clinical indication: Other: R hip pain; Additional info: Sudden R hip pain TECHNIQUE: Imaging protocol: Computed tomography of the lumbar spine without contrast. Radiation optimization: All CT scans at this facility use at least one of these dose optimization techniques: automated exposure control; mA and/or kV adjustment per patient size (includes targeted exams where dose is matched to clinical indication); or iterative reconstruction. COMPARISON: CR XR MULTIPLE SPINE 6+V 05/30/2022 3:47 PM FINDINGS: Bones/joints: No acute fracture. Normal alignment. No significant disc bulge or herniation. No severe spinal canal stenosis. No significant neural foraminal narrowing. Soft tissues: Unremarkable. IMPRESSION: No acute findings.
--- NOTE | 2023-11-04 08:24 | CT_ITS ---
PROCEDURE INFORMATION: Exam: CTA Head With Contrast, Arteriography Exam date and time: 11/04/2023 8:59 AM Age: 67 years old Clinical indication: Other: CVA TECHNIQUE: Imaging protocol: Computed tomographic angiography of the head with contrast. Exam focused on the arteries. 3D rendering (Not supervised by radiologist): MIP and/or 3D reconstructed images were created by the technologist. Radiation optimization: All CT scans at this facility use at least one of these dose optimization techniques: automated exposure control; mA and/or kV adjustment per patient size (includes targeted exams where dose is matched to clinical indication); or iterative reconstruction. Contrast material: ISOVUE; Contrast volume: 100 ml; Contrast route: INTRAVENOUS (IV); COMPARISON: CT ANGIO HEAD 11/03/2023 2:08 AM FINDINGS: ANTERIOR CIRCULATION: Right internal carotid artery: Intracranial segment is patent with no significant stenosis. No aneurysm. Right middle cerebral artery: No occlusion or significant stenosis. No aneurysm. Right anterior cerebral artery: No occlusion or significant stenosis. No aneurysm. Left internal carotid artery: There is a flow diverting stent in the left cavernous carotid artery. This appears patent. Left middle cerebral artery: No occlusion or significant stenosis. No aneurysm. Left anterior cerebral artery: No occlusion or significant stenosis. No aneurysm. POSTERIOR CIRCULATION: Right vertebral artery: No occlusion or significant stenosis. No aneurysm. Left vertebral artery: The intradural segment of the left vertebral artery is diminutive. Basilar artery: No occlusion or significant stenosis. No aneurysm. Right posterior cerebral artery: There is a origin of the right [employer] PROFESSOR. Left posterior cerebral artery: No occlusion or significant stenosis. No aneurysm. Brain: Reported separately. Cerebral ventricles: Reported separately. Bones/joints: No acute fracture. Soft tissues: Unremarkable. IMPRESSION: 1. No large vessel stenosis or occlusion. 2. If an acute intracranial infarction is suspected a follow-up MRI should be considered.
[2023-11-04] MEDS: AMOXICILLIN/CLAVULANATE POTASSIUM 875/125MG TABLET 1 EACH PO ×2 (08:26→20:00)
[2023-11-04] MEDS: ENOXAPARIN 40MG/0.4ML SYRINGE 40 MG SQ (08:27)
[2023-11-04] MEDS: 0.9 % SODIUM CHLORIDE 50 ML VIAL IV (09:21)
[2023-11-04] MEDS: IOPAMIDOL-370 (76%);100ML BOTTLE 175 ML IV (09:21)
[2023-11-04] MEDS: SODIUM CHLORIDE 0.9% 10ML SYR (RAD ONLY) 10 ML IV (09:21)
[2023-11-04] MEDS: ASPIRIN 325MG TABLET 325 MG PO (10:21)
--- NOTE | 2023-11-04 10:44 | PC.NURSE ---
AROUND THE BEGINNING OF SHIFT, PT FOUND TO BE SITTING ON THE GROUND IN HER ROOM BY TECH. PATIENT STATES THAT SHE DID NOT FALL, BUT SLOWLY SAT HERSELF DOWN ON THE GROUND. STATES THAT HER WHOLE RIGHT LEG IS NUMB AND WILL NOT WORK. PT EVALUATED IN BED. FACE SYMMETRICAL. FOLLOWS COMMANDS. ARMS/HANDS EQUAL IN STRENGTH. L LEG ABLE TO LIFT. R LEG UNABLE TO LIFT. NO OTHER DEFICITS NOTED. PT DOES C/O R LOWER BACK AND SIDE PAIN NOTED. MD AT BEDSIDE. VSS, CHARGE NURSE AND THIS NURSE AT BEDSIDE. MD ORDERS REPEAT OF SCANS AND ONE TIME DOES OF ASPIRIN.
--- NOTE | 2023-11-04 11:37 | EXP.PN ---
Subjective *Date: 11/04/23 *Time: 11:37 Interval history: patient was seen and evaluated at the bedside. No reported acute events overnight, denies chest pain, shortness of breath, nausea, vomiting, abdominal pain. Exam Data for Last 24 hours Vital signs and Labs for Last 24 Hours: Temp Pulse Resp BP Pulse Ox O2 Del Method 97.8 F 87 20 138/82 98 Room Air 11/04/23 08:00 11/04/23 08:00 11/04/23 08:00 11/04/23 08:00 11/04/23 08:00 11/04/23 11:00 I & O for Last 24 hours: Intake & Output 11/01/23 11/02/23 11/03/23 11/04/23 23:59 23:59 23:59 23:59 Intake Total 920 / 1040 240 / 240 Output Total 0 / 0 0 / 0 Balance 920 / 1040 240 / 240 Weight 58.967 kg 58.967 kg Constitutional Constitutional: no acute distress *Routine HEENT Exam Head: Present normocephalic Eye: Present EOMI and PERRL ENT: Present mucous membranes moist *Routine Neck Exam Neck: Present supple; Absent lymphadenopathy *Routine Respiratory Exam Respiratory: Present CTA bilaterally *Routine Cardiovascular Exam Cardiovascular: Present RRR *Routine Abdominal Exam Abdominal: Present soft and normoactive bowel sounds; Absent tenderness *Routine Extremities Exam Extremities: Absent cyanosis, clubbing or edema *Routine Skin Exam Skin: Present warm; Absent rash *Routine Neurological Exam Neurological: Present alert and oriented X3 Assessment and Plan *Assessment and plan (1) Toxic effect of corrosive acids and acid-like substances, accidental (unintentional), initial encounter: Status: Acute Category: Medical Code(s): T54.2X1A - Toxic effect of corrosive acids and acid-like substances, accidental (unintentional), initial encounter (2) Chronic ethmoidal sinusitis: Status: Acute Category: Medical Code(s): J32.2 - Chronic ethmoidal sinusitis (3) History of frequent nasal spray use: Status: Acute Category: Medical Code(s): Z87.898 - Personal history of other specified conditions (4) Elevated troponin: Status: Acute Category: Medical Code(s): R79.89 - Other specified abnormal findings of blood chemistry (5) Chest pain: Status: Acute Qualifiers: Chest pain type: unspecified Qualified Code(s): R07.9 - Chest pain, unspecified Category: Medical Code(s): R07.9 - Chest pain, unspecified (6) Back pain: Status: Acute Qualifiers: Back pain laterality: unspecified Back pain location: low back pain Chronicity: chronic Sciatica presence: unspecified whether sciatica present Qualified Code(s): M54.50 - Low back pain, unspecified; G89.29 - Other chronic pain Category: Medical Code(s): M54.9 - Dorsalgia, unspecified Plan 67-year-old female with a PMHx of neuropathy, chronic sinusitis, presented to the ER with multiple complaints. Spouse at bedside helped provide history. Reportedly patient and spouse frequently use nasal rinses before bedtime with saline, but tonight patient accidentally rinse her nose with white vinegar. also c/o CP, hip pain after previously fell at home with no sustained injury. Accidentally nose spray with vinegar. Chronic severe extensive sinusitis. History of frequent nasal spray use Started on was Augmentin twice daily Solu-Medrol 20 mg IV twice daily Obtain MRSA swab and culture -Elevated troponin: Presented with intermittent chest pain: Currently chest pain-free. Trending troponin Cardiology consult clinical research monitor Nitroglycerin sublingual for chest pain Patient presented hypertensive not on current medication no previous history Continue monitor blood pressure UA suggestive of UTI - start IV rocephin - Urine culture History of chronic pain Lovenox for DVT prophylaxis On Protonix for GI protection Full code await cardiology eval
--- NOTE | 2023-11-04 17:43 | PC.NURSE ---
A&OX4. TOLERATING RA WELL. SINCE WEAKNESS OCCURRED IN RLE THIS MORNING, PT HAS MOSTLY RESTED IN BED. BED ALARM APPLIED FOR SAFETY. LEG REMAINS LOOKING NORMAL. PT HAS HAD SOME FEELING AND FUNCTION COME BACK T/O THE DAY. HAS BEEN MASSAGING HER SIDE AND BACK. TYLENOL ALSO PROVIDED PER MAR. EFFECTIVENESS NOTED. PT AND STATE THAT SHE DID FALL ON THE PORCH A DAY BEFORE COMING INTO THE HOSPITAL. THINKING THIS MAY BE A PINCHED NERVE. ICE PACK APPLIED WELL. PT HAS BEEN AMBULATING IN ROOM WITH STANDBY ASSIST AND WALKER, TOLERATING WELL. SOME WEAKNESS STILL NOTED TO RLE. NO OTHER NEEDS OR C/O OTHERWISE. GOOD APPETITE, NO CHEST PAIN NOTED. AT BEDSIDE T/O SHIFT. VSS.
[2023-11-04] MEDS: PANTOPRAZOLE 40MG VIAL 40 MG IV (20:00)
[2023-11-04] MEDS: SODIUM CHLORIDE 0.9% 10ML VIAL 10 ML IV (20:00)
[2023-11-05] VITALS: BP 142/85; PULSE 70; PULSE 74; RESP 18; TEMP 36.8; O2SAT 97
[2023-11-05 04:00] VITALS: BP 120/53; PULSE 60; PULSE 74; RESP 18; TEMP 36.9; O2SAT 96; BMI 24.7
[2023-11-05] MEDS: METHYLPREDNISOLONE SOD SUCC 40MG VIAL 20 MG IV (04:33)
--- NOTE | 2023-11-05 05:15 | PC.NURSE ---
Patient has slept intermittently throughout shift. Patient c/o of pain to right leg x1 this shift, medicated per MAR with relief. Patient ambulated in room with walker to bathroom with standby assist and tolerated well. No c/o of chest pain. Bed alarm on for safety.
[2023-11-05 07:27] LABS: Basophils # 0.1 K/mm3 (0-0.2); Basophils % 0.6 % (0.1-2.0); Hematocrit 40.6 % (37.0-47.0); Hemoglobin 13.4 g/dL (12.2-16.2); Lymphocytes # 1.7 K/mm3 (0.7-4.5); Lymphocytes % 18.7 % (10-50); Mean Corpuscular HGB Conc 33.1 g/dL (31.8-35.4); Mean Corpuscular Hemoglobin 33.3 pg (27.0-31.2); Mean Corpuscular Volume 100.5 fl (81-99); Monocytes # 0.7 K/mm3 (0.1-1.0); Monocytes % 7.6 % (1.7-9.3); Neutrophils # 6.5 K/mm3 (1.8-7.8); Neutrophils % 73.1 % (37.0-80.0); Platelet Count 212 K/mm3 (142-424); Red Blood Count 4.04 M/mm3 (4.20-5.40); Red Cell Distribution Width 13.2 % (11.5-17.5); White Blood Count 8.8 K/mm3 (4.8-10.8)
[2023-11-05 07:34] LABS: Alanine Aminotransferase 22 U/L (12-78); Albumin Level 4.4 g/dl (3.5-5.0); Albumin/Globulin Ratio 1.4 (1.1-1.8); Alkaline Phosphatase 48 U/L (38-126); Anion Gap 9.8 mEq/L (5-15); Aspartate Amino Transferase 36 U/L (14-36); Bilirubin,Total 0.6 mg/dl (0.2-1.3); Blood Urea Nitrogen 22 mg/dl (7-17); Calcium 9.3 mg/dl (8.4-10.2); Carbon Dioxide 29 mmol/L (22.0-30.0); Chloride 102 mmol/L (98-107); Creatinine Clearance Estimated 53 mL/min (50-200); Estimated Glomerular Filt Rate 84 ml/min (>60); GFR (African American) 101 ML/MIN (>60); Globulin 3.2 g/dL (1.3-3.2); Glucose 126 mg/dl (74-100); Magnesium 2.3 mg/dl (1.6-2.3); Potassium 3.8 mmoL/L (3.5-5.1); Sodium 137 mmol/L (136-145); Total Protein,Serum 7.6 g/dl (6.3-8.2)
[2023-11-05 07:49] LABS: Troponin I < 0.01 ng/ml (0.00-0.034)
[2023-11-05 08:00] VITALS: BP 110/75; PULSE 73; PULSE 92; RESP 17; TEMP 36.9; O2SAT 98
[2023-11-05] MEDS: ENOXAPARIN 40MG/0.4ML SYRINGE 40 MG SQ (08:27)
[2023-11-05] MEDS: AMOXICILLIN/CLAVULANATE POTASSIUM 875/125MG TABLET 1 EACH PO (08:28)
--- NOTE | 2023-11-05 09:21 | HMH.PTEV ---
Physical Therapy Evaluation Rehab PT IP Evaluation Start: 11/04/23 10:27 Freq: ONCE Status: Active Protocol: Document 11/05/23 09:17 HATTIE (Rec: 11/05/23 09:21 HATTIE [email or web address]) Subjective/History History History Per H&P: This is a 67-year-old female with a PMHx of neuropathy, chronic sinusitis, presented to the ER with multiple complaints. Spouse at bedside helped provide history. Reportedly patient and spouse frequently use nasal rinses before bedtime with saline, but tonight patient accidentally rinse her nose with white vinegar. She was having burning of the nose but no other abnormalities. Spouse states he went into the bedroom shortly thereafter and patient was writhing on the floor in pain complaining of right hip and back pain. She also reported having chest pain and headache. Reportedly she fell at home earlier in the day but did not have any injuries from that fall. Her pain suddenly started tonight around 11:30 PM. She has denied any dysuria, pelvic pain, hematuria, she states her chest pain is resolved, she does not still have any headache, but her blood pressure is high and she does not take blood pressure medications at home. Patient states her nose is congested but no longer having pain. She is describing the pain starting in her low back and radiating around her right flank into her right glute and hip and traveling down the back of the leg. No numbness, tingling, weakness. Patient has not taken any medications for her symptoms. Admitted for management and treatment. Subjective Subjective PLOF per pt report: IND with mobility without AD use. Lives with in 2-story home. Was not driving prior to admission. New diagnosis of cancer in past 12 No months? Rehab PT IP Eval Objective Appearance Patient Behavior Appropriate,Cooperative Patient Orientation Person,Place,Situation Difficulty following instructions none Speech Pattern Clear Ambulation Patient Able to Ambulate Yes Ambulation Observation IP General Gait Pattern Observation Wide Based Gait Ambulation Distance (feet) 25 Ambulation Assistive Device None Ambulation Ability Supervision/Stand by,Contact Guard/Hand Hold Balance Ability to Arise Able, w/o using arms Sitting Balance Steady, safe Standing Balance Steady, wide stance Transfers Bed Transfer Ability Independent Sit to Stand Bed Transfer Ability Supervision/Stand by Rehab PT IP prob,goals,plan Problems Date of Evaluation: 03/25/24 PT IP Problems Balance Rehab Potential Rehab Potential Innapropriate for Skilled Therapy Discharge Plan PT Discharge Plan Pt safe to d/c home when deemed medically necessary d/t current level of mobility, home set-up, and family support. Pt not appropriate for skilled acute care PT at this time d/t pt?s mobility being at baseline. Eval Complexity Eval Charge Codes 64606 - Moderate Complexity PHYSICIAN CERTIFICATION: I certify the specified therapy services for Edgar Pierre are required, authorized, and reviewed every 30 days.
--- NOTE | 2023-11-05 09:31 | CA_ITS ---
APPROVED REPORT EXAM: Comprehensive 2D, Doppler, and color-flow Echocardiogram Roller Presser Operator: Marisela Basilio RT(R) Ht: 5 ft 2 in Wt: 134lbs BSA: 1.61 BP: 143/89 mmHg Indications: CP, elevated troponin, HTN 2D Dimensions Left Atrium 3.12 cm F: 2.7 - 3.8 EF AP4 71.30 % LVOT 1.66 cm (M/F) 1.5-2.5 GL Strain -20.5 % M-Mode Dimensions RVDd 2.86 cm (0.9-2.6) LVDd 3.76 cm (3.5-5.7) Ao Diam 2.76 cm (2.0-3.7) LVDs 2.72 cm (3.5-5.7) IVSd 0.61 cm (0.6-1.1) PWd 0.68 cm (0.6-1.1) EF (Teich) 54.50% FS 27.70% EDV (Teich) 60.40 mL ESV (Teich) 27.50 mL LV Diastology E Decel Time 236 (160-240 msec) E/A Ratio 0.8 MED E' 4.3 (>= 7 cm/sec) E'/MED E' Ratio 14.95 (<= 14) LAT E' 6.8 (>= 10 cm/sec) E/LAT E' Ratio 9.46 (<= 14) Mitral Valve MV E Max José Antonio. 64.0 (40-130 cm/s) MV A Velocity 81.0 (40-130 cm/s) E/A Ratio 0.79 MV Decel. Time 236 (160-240 ms) Left Ventricle The left ventricle is normal size. The left ventricular systolic function is normal. The left ventricular ejection fraction is within the normal range. There is normal left ventricular wall thickness. There is normal LV segmental wall motion. The left ventricular diastolic function is normal. LVEF is 55%. Right Ventricle The right ventricle is normal size. The right ventricular systolic function is normal. Atria The left atrium size is normal. The right atrium size is normal. There is no Doppler evidence of interatrial shunt. Aortic Valve The aortic valve is mildly thickened. Trace aortic regurgitation. There is no aortic valvular stenosis. Mitral Valve The mitral valve leaflets are mildly thickened. No evidence of mitral valve stenosis. Mild mitral regurgitation. Tricuspid Valve The tricuspid valve leaflets are thin and pliable. Trace tricuspid regurgitation. There is insufficient TR jet to estimate RVSP. Pulmonic Valve The pulmonary valve is normal in structure. Trace pulmonic regurgitation. Great Vessels The aortic root is normal in size. The ascending aorta is normal in size. IVC is normal in size and collapses >50% with inspiration. Pericardium There is no pericardial effusion. Other Information Study Quality: Fair Conclusion Normal biventricular systolic function. Mild MR. Electronically signed by : Wilma Peralta MD 11/07/2023 23:03:17
--- NOTE | 2023-11-05 10:12 | SW/DCPLANNER ---
I spoke w/ this patient regarding plans once medically stable for discharge. PT evaluated patient and recommended home health services. I spoke w/ patient regarding home health: patient is not interested in services at this time. I will continue to follow up w/ patient until medically stable for discharge. Discharge date is unknown at this time.
--- NOTE | 2023-11-05 10:18 | EXP.CARD.CON ---
History of Present Illness History of Present Illness Consult date: 11/05/23 Requesting physician: Cami Durham Consult reason: chest pain Chief complaint: Nasal pain, chest pain Additional Medical History:: 1. Chronic sinusitis 2. Chronic neuropathy 3. History of back pain 4. History of hysterectomy possibly for cancer History of present illness: This is a 67-year-old female with a PMHx of neuropathy, chronic sinusitis, presented to the ER with multiple complaints. Spouse at bedside helped provide history. Reportedly patient and spouse frequently use nasal rinses before bedtime with saline, but tonight patient accidentally rinse her nose with white vinegar. She was having burning of the nose but no other abnormalities. Spouse states he went into the bedroom shortly thereafter and patient was writhing on the floor in pain complaining of right hip and back pain. She also reported having chest pain and headache. Reportedly she fell at home earlier in the day but did not have any injuries from that fall. Her pain suddenly started tonight around 11:30 PM. She has denied any dysuria, pelvic pain, hematuria, she states her chest pain is resolved, she does not still have any headache, but her blood pressure is high and she does not take blood pressure medications at home. Patient states her nose is congested but no longer having pain. She is describing the pain starting in her low back and radiating around her right flank into her right glute and hip and traveling down the back of the leg. No numbness, tingling, weakness. Patient has not taken any medications for her symptoms. Admitted for management and treatment. The above per Dr. Durham Events as noted above confirmed with the patient. Sinus pain has resolved. Head CT, CTA and neck CTA unremarkable this admission. Patient does relate some history of reflux from time to time. She relates going up and down steps several times a day without chest pain prior to this incident. Troponins mildly elevated with troponin max of 0.07 and then repeat this morning within normal limits. CTA of the chest showed no acute findings except suggestion of pulmonary hypertension and a patulous esophagus. Atherosclerotic changes noted at the origin of the arch of the aorta. No aneurysm or dissection noted. Main pulmonary artery is mildly prominent measuring 3 cm. EKGs show sinus rhythm with short ND interval and nonspecific ST-T abnormalities inferolaterally. No old EKGs available for comparison. She does continue to have some low back and leg pain but CT of the pelvis and lumbar spine this admission unremarkable. [facility] Disclaimer: The information contained in this section may have been updated after the patient was seen, as this information can be updated by other users. Medical History (Updated 11/03/23 @ 06:27 by Slava Brothers APRN) Neuropathy Osteoporosis Arthritis Surgical History (Updated 11/03/23 @ 05:56 by Mi Nobles, RN) Hx of tonsillectomy History of hysterectomy Family History (Updated 11/03/23 @ 05:55 by iM Nobles RN) Other H/O: hysterectomy Social History Smoking Status: Never smoker alcohol intake: never current occupational status: employed Travel in the last 8 weeks: None household members: spouse housing: house Review of Systems Review of Systems Review of systems:: pertinent systems reviewed and negative unless documented below Constitutional Constitutional: Reports headache(s) and Denies weakness ENT Ears, Nose, Mouth, and Throat: Denies dizziness and Reports headache(s) *Cardiovascular Cardiovascular: Reports chest pain, Reports dyspnea and Denies dyspnea on exertion *Respiratory Respiratory: Denies cough, Reports dyspnea and Denies dyspnea on exertion *Musculoskeletal Musculoskeletal: Denies numbness and Denies tingling *Neurologic Neurologic: Denies dizziness, Reports headache(s), Denies numbness, Denies tingling and Denies weakness Exam Data for Last 24 hours Vital signs and Labs for Last 24 Hours: Temp Pulse Resp BP Pulse Ox O2 Del Method 98.4 F 92 H 17 110/75 98 Room Air 11/05/23 08:00 11/05/23 08:00 11/05/23 08:00 11/05/23 08:00 11/05/23 08:00 11/05/23 08:00 Laboratory Results - last 24 hr 11/05/23 06:40: WBC 8.8, RBC 4.04 L, Hgb 13.4, Hct 40.6, MCV 100.5 H, MCH 33.3 H, MCHC 33.1, RDW 13.2, Plt Count 212, MPV 9.0, Neut % (Auto) 73.1, Lymph % (Auto) 18.7, [place] % (Auto) 7.6, Eos % (Auto) 0.0 L, Baso % (Auto) 0.6, Neut # (Auto) 6.5, Lymph # (Auto) 1.7, [place] # (Auto) 0.7, Eos # (Auto) 0.0, Baso # (Auto) 0.1, Sodium 137, Potassium 3.8, Chloride 102, Carbon Dioxide 29, Anion Gap 9.8, BUN 22 H D, Creatinine 0.70 D, Estimated Creat Clear 53, Estimated GFR 84, Est GFR ( Amer) 101 D, Glucose 126 H, Calcium 9.3, Magnesium 2.3 D, Total Bilirubin 0.6, AST 36, ALT 22, Alkaline Phosphatase 48, Troponin I < 0.01, Total Protein 7.6, Albumin 4.4, Globulin 3.2, Albumin/Globulin Ratio 1.4 I & O for Last 24 hours: Intake & Output 11/02/23 11/03/23 11/04/23 11/05/23 11:59 11:59 11:59 11:59 Intake Total 1040 / 1040 1400 / 1400 Output Total 0 / 0 0 / 0 0 / 0 Balance 0 / 0 1040 / 1040 1400 / 1400 Weight 130 lb 130 lb 134 lb 12.8 oz Constitutional Constitutional: no acute distress *Routine Respiratory Exam Respiratory: Present CTA bilaterally *Routine Cardiovascular Exam Cardiovascular: Present RRR *Routine Extremities Exam Extremities: Absent edema Meds Home Medications and Allergies Home Medications Medication Instructions Recorded Confirmed Type cholecalciferol (vitamin D3) 10 1 unit PO DAILY Supplement 11/03/23 11/03/23 History mcg (400 unit) chewable tablet (Vitamin D3) fluticasone propionate 50 2 spray intranasal DAILY ALLERGIES 11/03/23 11/03/23 History mcg/actuation nasal spray,suspension ibandronate 150 mg tablet 150 mg PO MONTHLY OSTEOPORSIS 11/03/23 11/03/23 History amoxicillin 875 mg-potassium 1 tab PO BID ANTIBIOTIC 4 days #8 11/05/23 Rx clavulanate 125 mg tablet tabs methylprednisolone 4 mg tablets in See Rx Instructions .Route 11/05/23 Rx a dose pack .COMPLEX #21 tabs New Prescriptions to Start Prescriptions: amoxicillin-pot clavulanate Aletha,Sanjay methylprednisolone Sanjay [place] Allergies Allergy/AdvReac Type Severity Reaction Status Date / Time gabapentin Allergy Verified 11/03/23 02:25 Assessment and Plan *Assessment and plan (1) Toxic effect of corrosive acids and acid-like substances, accidental (unintentional), initial encounter: Status: Acute Category: Medical Code(s): T54.2X1A - Toxic effect of corrosive acids and acid-like substances, accidental (unintentional), initial encounter (2) Chest pain: Status: Acute Qualifiers: Chest pain type: unspecified Qualified Code(s): R07.9 - Chest pain, unspecified Category: Medical Code(s): R07.9 - Chest pain, unspecified (3) Elevated troponin: Status: Acute Category: Medical Code(s): R79.89 - Other specified abnormal findings of blood chemistry (4) History of frequent nasal spray use: Status: Acute Category: Medical Code(s): Z87.898 - Personal history of other specified conditions (5) Back pain: Status: Acute Qualifiers: Back pain laterality: unspecified Back pain location: low back pain Chronicity: chronic Sciatica presence: unspecified whether sciatica present Qualified Code(s): M54.50 - Low back pain, unspecified; G89.29 - Other chronic pain Category: Medical Code(s): M54.9 - Dorsalgia, unspecified (6) Neuropathy: Status: Chronic Category: Medical Code(s): G62.9 - Polyneuropathy, unspecified Plan 1. Accidental toxic substance use in nasal spray 2. Mild elevated troponin likely secondary to #1 -Will review echocardiogram 3. Chronic back pain and neuropathy with acute exacerbation with recent fall but no evidence of fracture Echocardiogram Shows preserved ejection fraction without significant valve disease. Stable from a cardiac standpoint for discharge home. Follow-up in our office in 1 to 2 weeks. Would recommend addition of aspirin 81 mg daily and atorvastatin 40 mg daily due to coronary artery calcifications noted on CT.
[2023-11-05] MEDS: ACETAMINOPHEN 325MG TAB 650 MG PO (11:12)
[2023-11-05 11:23] VITALS: BP 124/80; PULSE 64; RESP 18; TEMP 36.8; O2SAT 95
[2023-11-05 12:00] VITALS: PULSE 72
--- NOTE | 2023-11-05 12:11 | EXP.DC.SUM ---
General Admission date:: 11/03/23 Discharge date: 11/05/23 HPI HPI HPI: This is a 67-year-old female with a PMHx of neuropathy, chronic sinusitis, presented to the ER with multiple complaints. Spouse at bedside helped provide history. Reportedly patient and spouse frequently use nasal rinses before bedtime with saline, but tonight patient accidentally rinse her nose with white vinegar. She was having burning of the nose but no other abnormalities. Spouse states he went into the bedroom shortly thereafter and patient was writhing on the floor in pain complaining of right hip and back pain. She also reported having chest pain and headache. Reportedly she fell at home earlier in the day but did not have any injuries from that fall. Her pain suddenly started tonight around 11:30 PM. She has denied any dysuria, pelvic pain, hematuria, she states her chest pain is resolved, she does not still have any headache, but her blood pressure is high and she does not take blood pressure medications at home. Patient states her nose is congested but no longer having pain. She is describing the pain starting in her low back and radiating around her right flank into her right glute and hip and traveling down the back of the leg. No numbness, tingling, weakness. Patient has not taken any medications for her symptoms. Admitted for management and treatment. Hospital Course Hospital Course Hospital Course: 67-year-old female with a PMHx of neuropathy, chronic sinusitis, presented to the ER with multiple complaints. Spouse at bedside helped provide history on presentation. Reportedly patient and spouse frequently use nasal rinses before bedtime with saline, but tonight patient accidentally rinse her nose with white vinegar. also c/o CP, hip pain after previously fell at home with no sustained injury. Patient did well during admission. Tolerating antibiotics and steroids. Stable to discharge home to complete antibiotic course. Chest pain is resolved. Problems addressed as follows: Accidentally nose spray with vinegar. Chronic severe extensive sinusitis. History of frequent nasal spray use -Patient initially treated with ceftriaxone. Transitioned to Augmentin to cover for both sinus and possible UTI source. Treated with steroids daily to help with inflammation. MRSA swab obtained and negative. Patient showed good clinical response with no further symptoms and resolution of her sinus pain. Encouraged continued use of nasal lavage but being extra cautious about not using solution other than saline solution. Patient states understanding. Encouraged outpatient referral to ENT, patient stated she would make her own appointment. -Elevated troponin: Presented with intermittent chest pain: Evaluated by cardiology. Likely stress-induced type II NSTEMI. No intervention at this time. Chest pain resolved. Troponins trended down. Stable to discharge home to complete antibiotics. Exam Data for Last 24 hours Vital signs and Labs for Last 24 Hours: Temp Pulse Resp BP Pulse Ox O2 Del Method 98.3 F 64 18 124/80 95 Room Air 11/05/23 11:23 11/05/23 11:23 11/05/23 11:23 11/05/23 11:23 11/05/23 11:23 11/05/23 11:23 Laboratory Results - last 24 hr 11/05/23 06:40: WBC 8.8, RBC 4.04 L, Hgb 13.4, Hct 40.6, MCV 100.5 H, MCH 33.3 H, MCHC 33.1, RDW 13.2, Plt Count 212, MPV 9.0, Neut % (Auto) 73.1, Lymph % (Auto) 18.7, [place] % (Auto) 7.6, Eos % (Auto) 0.0 L, Baso % (Auto) 0.6, Neut # (Auto) 6.5, Lymph # (Auto) 1.7, [place] # (Auto) 0.7, Eos # (Auto) 0.0, Baso # (Auto) 0.1, Sodium 137, Potassium 3.8, Chloride 102, Carbon Dioxide 29, Anion Gap 9.8, BUN 22 H D, Creatinine 0.70 D, Estimated Creat Clear 53, Estimated GFR 84, Est GFR ( Amer) 101 D, Glucose 126 H, Calcium 9.3, Magnesium 2.3 D, Total Bilirubin 0.6, AST 36, ALT 22, Alkaline Phosphatase 48, Troponin I < 0.01, Total Protein 7.6, Albumin 4.4, Globulin 3.2, Albumin/Globulin Ratio 1.4 I & O for Last 24 hours: Intake & Output 11/02/23 11/03/23 11/04/23 11/05/23 23:59 23:59 23:59 23:59 Intake Total 920 / 1040 990 / 1050 770 / 770 Output Total 0 / 0 0 / 0 0 / 0 Balance 920 / 1040 990 / 1050 770 / 770 Weight 58.967 kg 58.967 kg 61.144 kg Constitutional Constitutional: no acute distress, average body habitus and cooperative *Routine HEENT Exam Head: Present normocephalic Eye: Present EOMI and PERRL ENT: Present mucous membranes moist Comments: No sinus tenderness *Routine Neck Exam Neck: Present supple; Absent lymphadenopathy *Routine Respiratory Exam Respiratory: Present CTA bilaterally; Absent rhonchi, wheezes or crackles *Routine Cardiovascular Exam Cardiovascular: Present RRR *Routine Abdominal Exam Abdominal: Present soft and normoactive bowel sounds; Absent tenderness *Routine Rectal Exam Patient deferred: visual exam *Routine Exam Patient deferred: external exam *Routine Extremities Exam Extremities: Absent cyanosis, clubbing or edema *Routine Skin Exam Skin: Present warm; Absent rash *Routine Neurological Exam Neurological: Present alert, oriented X3 and moving all extremities; Absent altered mental status Results Data Completed and Pending Labs on day of discharge: Labs from last 24 hours 11/05/23 06:40 WBC 8.8 RBC 4.04 L Hgb 13.4 Hct 40.6 MCV 100.5 H MCH 33.3 H MCHC 33.1 RDW 13.2 Plt Count 212 MPV 9.0 Neut % (Auto) 73.1 Lymph % (Auto) 18.7 [place] % (Auto) 7.6 Eos % (Auto) 0.0 L Baso % (Auto) 0.6 Neut # (Auto) 6.5 Lymph # (Auto) 1.7 [place] # (Auto) 0.7 Eos # (Auto) 0.0 Baso # (Auto) 0.1 Sodium 137 Potassium 3.8 Chloride 102 Carbon Dioxide 29 Anion Gap 9.8 BUN 22 H D Creatinine 0.70 D Estimated Creat Clear 53 Estimated GFR 84 Est GFR ( Amer) 101 D Glucose 126 H Calcium 9.3 Magnesium 2.3 D Total Bilirubin 0.6 AST 36 ALT 22 Alkaline Phosphatase 48 Troponin I < 0.01 Total Protein 7.6 Albumin 4.4 Globulin 3.2 Albumin/Globulin Ratio 1.4 DS: Diagnosis Discharge Diagnosis (1) Toxic effect of corrosive acids and acid-like substances, accidental (unintentional), initial encounter: Status: Acute Code(s): T54.2X1A - Toxic effect of corrosive acids and acid-like substances, accidental (unintentional), initial encounter (2) Chest pain: Status: Acute Code(s): R07.9 - Chest pain, unspecified Qualifiers: Chest pain type: unspecified Qualified Code(s): R07.9 - Chest pain, unspecified (3) Elevated troponin: Status: Acute Code(s): R79.89 - Other specified abnormal findings of blood chemistry (4) History of frequent nasal spray use: Status: Acute Code(s): Z87.898 - Personal history of other specified conditions (5) Back pain: Status: Acute Code(s): M54.9 - Dorsalgia, unspecified Qualifiers: Back pain laterality: unspecified Back pain location: low back pain Chronicity: chronic Sciatica presence: unspecified whether sciatica present Qualified Code(s): M54.50 - Low back pain, unspecified; G89.29 - Other chronic pain (6) Neuropathy: Status: Chronic Code(s): G62.9 - Polyneuropathy, unspecified Meds Home Medications and Allergies Home Medications Medication Instructions Recorded Confirmed Type cholecalciferol (vitamin D3) 10 1 unit PO DAILY Supplement 11/03/23 11/03/23 History mcg (400 unit) chewable tablet (Vitamin D3) fluticasone propionate 50 2 spray intranasal DAILY ALLERGIES 11/03/23 11/03/23 History mcg/actuation nasal spray,suspension ibandronate 150 mg tablet 150 mg PO MONTHLY OSTEOPORSIS 11/03/23 11/03/23 History amoxicillin 875 mg-potassium 1 tab PO BID ANTIBIOTIC 4 days #8 11/05/23 Rx clavulanate 125 mg tablet tabs methylprednisolone 4 mg tablets in See Rx Instructions .Route 11/05/23 Rx a dose pack .COMPLEX #21 tabs New Prescriptions to Start Prescriptions: amoxicillin-pot clavulanate Aletha,Sanjay methylprednisolone Sanjay [place] Allergies Allergy/AdvReac Type Severity Reaction Status Date / Time gabapentin Allergy Verified 11/03/23 02:25 Discharge Plan Disposition Patient Disposition: Home, Self-Care Condition: Good Follow up Plan Follow up with: Gregory Hayes MD [Primary Care Provider] - 11/13/23 11:15 am Thierry Peralta MD [Staff Physician] - 11/15/23 2:45 pm Prescriptions/Medication Reconciliation: Continued ibandronate 150 mg Tablet 150 mg PO MONTHLY cholecalciferol (vitamin D3) [Vitamin D3] 10 mcg (400 unit) Tablet,Chewable 1 unit PO DAILY fluticasone propionate 50 mcg/actuation [place],Suspension 2 spray INTRANASAL DAILY Rx Instructions: PRESCRIBED IN ER 11/03/23 PRIOR TO ADMISSION. amoxicillin-pot clavulanate 875-125 mg Tablet 1 tab PO BID 4 Days Qty: 8 0RF Rx Instructions: PRESCRIBED IN ER 11/03/23 PRIOR TO ADMISSION. Changed methylprednisolone 4 mg tablets,dose pack See Rx Instructions .ROUTE .COMPLEX Qty: 21 0RF Rx Instructions: take per following taper: 6 tabs on day 1, 5 on day 2, 4 on day 3, 2 on day, one tab on day 5. Problem Reconciliation Problems Reviewed?: Yes Patient Discharge Instructions ACTIVITY: Continue current activity DIET: continue same diet Patient Instructions: DI for Chest Pain Providers Primary Care Provider: Gregory Hayes Admit Provider: Sanjay [place] Attending Provider: Sanjay [place]
--- NOTE | 2023-11-05 13:10 | HMH.PHAINT1 ---
Pharmacy Intervention Comments: Discharge medication counseling was provided to patient and family member. It was discussed to continue taking home medications and the dose taper on the methylprednisolone was explained. Prescriptions were went to [facility]. Patient and family member verbalized understanding and had no further questions.
--- NOTE | 2023-11-07 14:36 | CARE MANAGER ---
Spoke with patient's . He states the patient is having a lot of pain in her arms and legs. They have been to chiropractor and they are going today. They had no new medications. They are aware of follow up appointments and deny questions or concerns. GINA Medeiros
== END 2023-11-05 13:45 | disposition home or self-care (01) ==
LOC: ER 04:41 → 2ND 05:02
PROVIDERS: Nurse Practitioner Family; Admitting Provider Internal Medicine Adolescent Medicine; Emergency Provider Emergency Medicine; PCP Family Medicine; Visit Provider Internal Medicine Adolescent Medicine
DX: T54.2X1A Toxic effect of corrosive acids and acid-like substances, accidental (unintentional), initial encounter (principal); J32.2 Chronic ethmoidal sinusitis; R79.89 Other specified abnormal findings of blood chemistry; G62.9 Polyneuropathy, unspecified; R07.9 Chest pain, unspecified; R03.0 Elevated blood-pressure reading, without diagnosis of hypertension; M54.50 Low back pain, unspecified; M25.551 Pain in right hip; M79.604 Pain in right leg; R51.9 Headache, unspecified; W19.XXXA Unspecified fall, initial encounter; M19.90 Unspecified osteoarthritis, unspecified site; M81.0 Age-related osteoporosis without current pathological fracture; Z79.899 Other long term (current) drug therapy; Z79.2 Long term (current) use of antibiotics; Z79.51 Long term (current) use of inhaled steroids; Z79.52 Long term (current) use of systemic steroids; Z88.8 Allergy status to other drugs, medicaments and biological substances; Z90.79 Acquired absence of other genital organ(s); Z84.89 Family history of other specified conditions
CPT/HCPCS: 36415; 70450; 70496; 70498; 71045; 71275; 72131; 72193; 73502; 74174; 80053; 81001; 83735; 84484; 85025; 87086; 93005; 93306; 97162; 97165; 99285; G0378; J0131; J2405; J2919; Q9967

== ENCOUNTER 2023-11-19 06:08 | Outpatient (CLI) | payer MEDICARE, OTHER, SELFPAY ==
--- NOTE | 2023-11-19 06:22 | NM_ITS ---
APPROVED REPORT Exam: Nuclear Stress Test Indication: SOB, Fatigue Patient Location: Outpatient Stress Tech: Bebe Antony [place] Tech:Rain Paulino, ARRT, RT (R)(N) Ht: 5 ft 2 in Wt: 142 lbs Bra Size: B HR: 91 bpm BP: 133/89 mmHg BSA: 1.65 m2 TID: 1.10 BMI: 25.9 History: SOB, Fatigue Procedure: Patient received 0.4 mg of intravenous Lexiscan, resting heart rate 91 bpm, resting blood pressure 133/89 mmHg, with Lexiscan maximum heart rate achieved was 120 bpm which is % of the maximum predicted heart rate and blood pressure was 166/89 mmHg. With Lexiscan, patient denied any complaint of chest pain. Cardiac Stress and Resting SPECT Images: Cardiac Stress and Resting SPECT images were obtained using technetium 99m Myoview 30.5 mCi stress and 10.12 mCi at rest. Resting and stress imaging in supine and prone positions demonstrate no evidence of fixed or reversible perfusion defects. Gated imaging demonstrates normal global and regional LV systolic function. LVEF is calculated at 66%. Conclusion: No evidence of fixed or reversible perfusion defects. Gated imaging demonstrates normal global and regional LV systolic function. LVEF is calculated at 66%. Electronically signed by : Wilma Peralta MD 11/21/2023 23:07:39
[2023-11-19] MEDS: SODIUM CHLORIDE 0.9% 10ML SYR (RAD ONLY) 10 ML IV ×2 (08:13)
[2023-11-19] MEDS: REGADENOSON 0.4MG/5ML SYRINGE 0.400000000000000022 MG IV (08:13)
[2023-11-19] MEDS: ISOTOPE MYOVIEW (PER STUDY) 1 DOSE IV (08:13)
--- NOTE | 2023-11-19 08:35 | CA_ITS ---
APPROVED REPORT Exam: Pharmacologic Technologist: Bebe Mayer, Ht: 5 ft 2 in Wt: 124 lbs BSA: 1.56 m2 HR: 90 bpm BP: 133/89 mmHg Medical History Medications: Vitamin D3,,,,, Flonase,,,,, Diclofenac Sodium,,,,, Ibandronate,,,,, Stress Test Details Test: LEXISCAN Reason for pharmacologic stress test: physical limitation. HR Resting HR: 91 bpm Max Heart Rate (APMHR): 154 bpm Max HR Achieved: 120 bpm Target HR (85% APMHR): 131 bpm % of APMHR: 78 Recovery HR: 109 bpm BP Resting BP: 133.0/89.0 mmHg Max BP: 166.0/8.0 mmHg Recovery BP: 114.0/68.0 mmHg ECG Resting ECG: Normal sinus rhythm Stress ECG: No ST changes Arrhythmia: None Clinical Exercise duration: 04:00 min Highest Stage Achieved: Exercise capacity: 1.0 METs Stress ECG Conclusion Symptoms: SOB and leg pain with Lexiscan. Leg pain was before infusion as well. Arrhythmias/Ectopy: none ST changes: None Conclusion: Unremarkable Lexiscan stress test. Myoview images reported separately. Test Summary REST . . . . . . . Resting REST 09:50 . . 91 . 133/ 89 . . Stage 1 01:00 . . 113 . . . . Stage 2 01:00 . . 119 . 116/ 68 . . Stage 3 01:00 . . 116 . 118/ 72 . . Stage 4 01:00 . . 113 . 118/ 69 . Stop exercise at 04:00 RECOVERY 01:00 . . 117 . 105/ 66 . . RECOVERY 01:52 . . 108 . 114/ 68 . . Electronically signed by : Wilma Peralta MD 11/21/2023 23:06:30
== END 2023-11-19 23:59 ==
LOC: RAD 06:09
PROVIDERS: PCP Family Medicine; Visit Provider Internal Medicine
DX: R06.00 Dyspnea, unspecified (principal)
CPT/HCPCS: 78454; 93017; 93018; A9502; J2785

== ENCOUNTER 2024-03-11 13:00 | Outpatient (RCR) | payer MEDICARE, OTHER, SELFPAY | END 2024-03-11 23:59 | disposition home or self-care (01) | LOC: PT 13:00 | PROVIDERS: Visit Provider Family Medicine | DX: M62.59 Muscle wasting and atrophy, not elsewhere classified, multiple sites (principal) | CPT/HCPCS: 97010; 97014; 97110; 97112; 97163; 97164; 97530; G0283 ==

== ENCOUNTER 2024-10-17 14:11 | Outpatient (CLI) | payer MEDICARE, OTHER, SELFPAY ==
--- NOTE | 2024-10-17 14:11 | US_ITS ---
FINAL REPORT CLINICAL HISTORY: lipoma on shoulder FINDINGS: Limited sonographic images of the anterior right shoulder was obtained. There is an oval, solid structure in the region of the palpable abnormality measuring 33 mm in diameter and 7 mm in thickness. It is unclear if this is fatty or soft tissue density. IMPRESSION: Nonspecific solid mass in the region of interest. MRI could better assess if this is soft tissue or lipomatous in nature. Reviewed, Interpreted and Dictated by Houston Riley MD Transcribed by Teagan Gutierrez Authenticated and [facility]
--- NOTE | 2024-10-17 14:14 | MM_ITS ---
PROCEDURE INFORMATION: Exam: MG Bilateral Screening 3D Mammography Exam date and time: 10/17/2024 2:47 PM Age: 68 years old Clinical indication: Screening examination TECHNIQUE: Imaging protocol: Bilateral Screening tomosynthesis and 2D mammography including computer-aided detection (CAD) when performed. COMPARISON: 1. MG MM DIG SCREENING MAMM BI W/CAD 10/16/2023 3:10 PM 2. MG MM DIG SCREENING MAMM BI W/CAD 02/09/2022 10:35 AM FINDINGS: MAMMOGRAPHY: Breast composition: There are scattered areas of fibroglandular density. Mass: No suspicious masses. Architectural distortion: None. Calcifications: No suspicious calcifications. Asymmetric density: None. Skin thickening: None. Axillary adenopathy: None. IMPRESSION: No mammographic evidence of malignancy. Annual screening is recommended unless otherwise clinically indicated. ASSESSMENT: BI-RADS Category 1: Negative.
== END 2024-10-17 23:59 | disposition home or self-care (01) ==
LOC: RAD 14:11
PROVIDERS: PCP Family Medicine; Visit Provider Surgery
DX: D17.21 Benign lipomatous neoplasm of skin and subcutaneous tissue of right arm (principal); Z12.31 Encounter for screening mammogram for malignant neoplasm of breast
CPT/HCPCS: 76882; 77063; 77067

== ENCOUNTER 2024-10-30 15:17 | Outpatient (CLI) | payer MEDICARE, OTHER, SELFPAY ==
--- NOTE | 2024-10-30 16:20 | MR_ITS ---
FINAL REPORT TECHNIQUE: Multiplanar MR without gadolinium enhancement CLINICAL HISTORY: lipoma on the anterior aspect of the shoulder, marked, has been there for years COMPARISON: Ultrasound dated 10/17/2024 FINDINGS: There is degradation of overall image quality secondary to motion artifact. Marrow signal: There are minimal cystic changes present in the humeral head. No bony mass is identified. Glenohumeral joint: Mild degenerative changes are present in the glenohumeral joint, with a physiologic effusion. Acromioclavicular joint: Mild acromioclavicular arthropathy is present with mild rotator cuff impingement. Rotator cuff apparatus: There is severe tendinosis of the supraspinatus tendon with a mild to partial tear of the undersurface of that tendon measuring less than 50% of the thickness of the tendon. Labrum: Degenerative signal without discrete tear. Biceps tendon: Unremarkable A marker overlies the site of the palpable abnormality, which is superficial to the deltoid muscle. There is a well-circumscribed fatty mass deep to the marker, measuring 30 x 29 x 9 mm in size, consistent with a lipoma. IMPRESSION: Well-circumscribed fat signal mass, 30 x 29 x 9 mm in size, superficial to the deltoid muscle, consistent in appearance with a lipoma. Severe tendinosis of the supraspinatus tendon with a mild partial tear of the undersurface of the tendon measuring less than 50% of the thickness of the supraspinatus tendon. Reviewed, Interpreted and Dictated by Houston Riley MD Transcribed by Najma Ibarra Authenticated and [facility]
== END 2024-10-30 23:59 | disposition home or self-care (01) ==
LOC: RAD 15:18
PROVIDERS: PCP Family Medicine; Visit Provider Surgery
DX: D17.22 Benign lipomatous neoplasm of skin and subcutaneous tissue of left arm (principal); M67.814 Other specified disorders of tendon, left shoulder
CPT/HCPCS: 73221

== ENCOUNTER 2024-11-11 10:52 | Outpatient (CLI) | payer MEDICARE, OTHER, SELFPAY ==
--- NOTE | 2024-11-11 11:25 | ECG_ITS ---
APPROVED REPORT Exam: Resting ECG HR:65 bpm ECG Measurements Heart Rate 65 AXES UT 129 P 75 QRSd 79 QRS 59 QT 397 T 51 QTc 408 Conclusion SINUS RHYTHM LOW QRS VOLTAGE IN PRECORDIAL LEADS [QRS DEFLECTION < 1.0 mV IN CHEST LEADS] BORDERLINE ECG UNCONFIRMED REPORT Electronically signed by : Blayne Hall MD 11/12/2024 08:24:27
[2024-11-11 11:31] VITALS: BMI 23.8
== END 2024-11-11 23:59 | disposition home or self-care (01) ==
LOC: PREOP 10:54
PROVIDERS: PCP Family Medicine; Visit Provider Surgery
DX: Z01.810 Encounter for preprocedural cardiovascular examination (principal); R94.31 Abnormal electrocardiogram [ECG] [EKG]
CPT/HCPCS: 93005

== ENCOUNTER 2024-11-24 06:44 | Day surgery (SDC) | payer MEDICARE, OTHER, SELFPAY ==
[2024-11-11 11:29] VITALS: BMI 23.8
[2024-11-24] VITALS (11 sets, daily range): BP systolic 112–138; BP diastolic 50–89; PULSE 57–64; RESP 10–17; TEMP 36.1–36.3; O2SAT 96–99
[2024-11-24] MEDS: LACTATED RINGERS 1000ML 1,000 ML 25 ML IV (07:50)
[2024-11-24] MEDS: CEFAZOLIN SODIUM 1 GM in 0.9 % SODIUM CHLORIDE 50 ML IV (09:05)
[2024-11-24] MEDS: LIDOCAINE 1% 20ML MDV 20 ML (09:21)
[2024-11-24] MEDS: ROPIVACAINE 0.5% 30ML VIAL 150 MG (09:21)
--- NOTE | 2024-11-24 09:34 | P.OP_ITS ---
Date of procedure: 11/24/24 Pre-op Diagnosis:: Right shoulder lipoma Post-op Diagnosis:: Same Procedure performed:: Excision of right shoulder lipoma (excisional length 4 cm) with intermediate complexity closure Surgeon:: Ashkan Hui MD CARDIAC CATH LAB MANAGER:: Sanjay Zaldivar Anesthesia: local and LMA Estimated blood loss (mL): 5 Operative findings:: Consistent with well-circumscribed lipoma Operative note:: Consent was obtained patient was taken the operating room. She was given preoperative intravenous antibiotics. In the operating room she was placed in a supine position. General anesthesia was induced via LMA. The area was positioned and prepped and draped in the standard surgical fashion. Boundaries of the palpable lesion were marked with a skin marker. Skin was marked with skin marker for planned incision along skin lines. Incision was made. Dissection was carried down through dermis and superficial subcutaneous tissues into the subcutaneous fascia which was incised. Relatively well-circumscribed lipomatous tissue was encountered. It was dissected free from surrounding normal subcutaneous tissue using blunt dissection and Metzenbaum dissection. Was excised from the underlying tissues, down to the deltoid muscle but not including it, using electrocautery. It was sent off as a specimen. Hemostasis was achieved with electrocautery. Subcutaneous fascia was closed with several interrupted 3-0 Vicryl. Subdermal tissues were closed with 3-0 Vicryl in an interrupted fashion. Skin was closed with 4-0 Monocryl in a subcuticular fashion. Steri-Strips and dressing was applied. Condition: stable Disposition: PACU Complications:: None immediately apparent
--- NOTE | 2024-11-24 09:49 | P.PNANES_ITS ---
[facility] Disclaimer: The information contained in this section may have been updated after the patient was seen, as this information can be updated by other users. Medical History History of cervical cancer Cerebral aneurysm Neuropathy Osteoporosis Arthritis Surgical History History of surgery Hx of tonsillectomy History of hysterectomy Family History Other Family history of cancer H/O: hysterectomy Social History Smoking Status: Never smoker alcohol intake: never substance use type: denies use current occupational status: employed and retired Travel in the last 8 weeks: None household members: spouse housing: house [facility] Anesthesia Checklist Patient Identification Patient Identification: Arm Band and Family Structural Data Admitted From: Home Planned Operative Procedure/s: Excision left shoulder lipoma Consent for Planned Operative Procedure(s) Verified: Yes Verified Documents: Surgical Consent and History and Physical NPO Status Verified Time NPO: 00:00 Additional verifications Patient : No Anesthesia Reactions: No Hx Blood Transfusions: No Blood Transfusion Reaction: No Cephalosporin Allergy: No Previous Colonoscopy: Yes Airway Assessment Mallampati Score:: Class II C-Spine Mobility Assessed: Yes TMJ Mobility Assessed: Yes Dentition: Good Dentition Neurological Assessment Level of Consciousness: Awake, Alert and Appropriate Hx Seizures: No Numbness or tingling in extremities: No Anesthesia Plan Anesthesia Risk discussed: Yes ASA Class: II Anesthesia Type: General
--- NOTE | 2024-11-24 09:52 | EXP.ANES.I ---
[facility] Anesthesia Record Part I Anesthesia Record I Intake, IV Amount: 200 Hydration: Adequate Estimated blood loss (mL): 5 Urine output (mL): 0 Blood Products used (#): none Blood Pressure: 125/74 SaO2: 98 Pulse Rate: 59 Airway Patency: Patent Respiratory Rate: 10 Temperature: 97 F Patient is:: Drowsy and Stable Stable to PACU at:: 09:42
--- NOTE | 2024-11-24 14:41 | EXP.ANES.II ---
[facility] Anesthesia Record Part II Anesthesia Record Part II Discharge Time: 10:12 Destination: Surgical Day Care (OP Surgery) PACU nurse assessment reviewed?: Yes Patient Condition:: Good Anesthesia Complications:: None Swallowing reflex intact?: Yes Airway Patency: Patent Cyanosis?: No Blood Pressure: 129/77 SaO2: 99 Respiratory Rate: 16 Pulse Rate: 60 Temperature: 97 F Mental Status: Alert & Oriented Pain level:: 0 Nausea and/or vomitting:: None Intake, IV Amount: 0 Hydration: Adequate
== END 2024-11-24 10:51 | disposition home or self-care (01) ==
PROVIDERS: PCP Family Medicine; Visit Provider Surgery
PROC: (CPT 11404; principal; 2024-11-24 08:35)
DX: D17.21 Benign lipomatous neoplasm of skin and subcutaneous tissue of right arm (principal); R52 Pain, unspecified
CPT/HCPCS: 11404; 12032; 96374; J1100; J2250; J2405; J3010; J7120

== ENCOUNTER 2024-12-26 13:39 | Outpatient (CLI) | payer MEDICARE, OTHER, SELFPAY ==
--- OUTSIDE RECORDS SUMMARY | 2024-12-26 13:41 | XMS_ITS | Data Portability ---
Author Organization [place] - [facility] Address [address] [place] [address] Care Team Providers Care Bonding Molder Name Role Phone JOSHUA PEREZ Primary Care Provider Assessment No assessment recorded. Plan of Treatment Reminders Order Date Submit Date Provider Last Modified By Organization Details Last Modified Time Details Appointments None recorded. Lab None recorded. Referral None recorded. Procedures esophagoga stroduoden oscopy with biopsy (PROC) - PHYSICIAN ORDERS1. Ensure patient is NPO.0.9% normal saline @kvo preferably in right arm; IV patent to gravity.3. verify consent. EGD with possible biopsy with possible dilation.4 . On-Call to Endoscopy. 5. Draw pt/inr if patient on Coumadin Hold 2022 023 [email or web address] Not available 3 12:03:33 colonoscop y procedure (PROC) - PHYSICIAN ORDERS1. Ensure patient is NPO and bowel prep complete.0 .9% normal saline @kvo preferably in right arm; IV patent to gravity.3. Verify consent. Colonoscop y with possible biopsy with possible polypectom y.4. On-Call to Endoscopy. 5. If prep not clear, give large volume enema and report results.6. Draw pt/inr if patient on Coumadin Hold 2022 023 [email or web address] Mishra (Outpatient Surgery), [address] [place] [address] , [place], [address], 3 13:29:07 Surgeries None recorded. Imaging None recorded. Medication Orders Suprep Bowel Prep Kit 17.5 gram-3.13 gram-1.6 gram oral solution 2022 023 [email or web address] [facility], [facility], [place], [address], 3 06:29:34 Patient TargetsNo targets recorded. Patient InstructionsNo instructions recorded. Reason for Referral None Reported. Results Created Date Observation Date Name Description Value Unit Range Abnormal Flag Note LastModifiedBy Organization Detail LastModifiedTime Result Notes None recorded. Problems Name Problem SNOMED Code Status Onset Date Resolution Date Notes Provider Name and Address Organization Details Recorded Time Gastric intestinal metaplasia 13581510 Active 023 Wali Rhodes MD [address] [place] [address],[address], [phone], [facility] & [place] 3 15:57:36 Abdominal bloating 430265234 Active 023 Wali Rhodes MD [address] [place] [address],[address], [phone], [facility] - [facility] & [place] 3 15:58:54 Problem Notes None recorded. Procedures Surgical History Date Name Laterality Status Provider Name and Address Organization Details Recorded Time [facility]ste[facility] [place] [facility]22 15:32:37 [facility]lectomy [facility] [place] [facility]/15/2022 15:32:50 Brain aneurysm repr simple [facility] [place] 08/15/2022 15:33:17 Imaging Results None recorded. Procedure Notes None recorded. Medical Equipment None Reported. Allergies Allergen ID Allergen Name Allergen Category Reaction Reaction Severity Criticality Documentation Date Start Date Code Code System Note Provider Name and Address Organization Details Recorded Time 37383 gabapenti n medicatio n Not available Not available Not available 08/15/2022 01441 RxNorm IMELDA Zambrano - [facility] & [place] 3 15:30:47 Medications Name Sig Start Date Stop Date Status Note LastModified by Organization Details LastModified Time tretinoin 0.1 % topical cream daily active Not Available Not Available Not Available fluconazole 100 mg tablet 08/15 completed Not Available Not Available Not Available azithromyci n 250 mg tablet 08/15 completed Not Available Not Available Not Available fluconazole 150 mg tablet TAKE 1 TABLET BY MOUTH EVERY DAY 08/15 completed Not Available Not Available Not Available dexamethaso ne 6 mg tablet TAKE 1 TABLET BY MOUTH EVERY DAY WITH FOOD FOR 7 DAYS 08/15 completed Not Available Not Available Not Available esomeprazol e magnesium 40 mg capsule,del ayed release 08/15 completed Not Available Not Available Not Available clotrimazol e 1 % topical cream 1 time a week active Not Available Not Available No t Available esomeprazol e magnesium 20 mg capsule,del ayed release TAKE 1 CAPSULE DAILY 2023 active Not Available Not Available Not Avai lable ibandronate 150 mg tablet Take 1 tablet every 4 weeks by oral route for 90 days. active Not Available Not Available No t Available pregabalin 75 mg capsule Take 1 capsule every day by oral route as needed for 90 days. active Not Available Not Available No t Available diclofenac 1 % topical gel daily as needed active Not Available Not Available No t Available sodium,pota ssium,mag sulfates 17.5 gram-3.13 gram-1.6 gram oral soln MIX AND DRINK DIRECTED active Not Available Not Available No t Available Vitals Date Recorded Body height Body mass index (BMI) Body weight Respiratory rate Heart rate Body temperature Systolic blood pressure Diastolic blood pressure Provider Name and Address Organization Details Last Updated DateTime 3 157.48 cm 25 kg/m2 90958.7 2 g 18 /min 73 /min 97.8 [degF] 114 mm[Hg] 64 mm[Hg] Felton Chu [facility] & [place] 15:29:48 Social History Question Answer Notes LastModified by Organizat ion Details LastModified Time Tobacco Smoking Status Never Smoker IMELDA Zambrano [facility] & [place] 08/15/2022 15:32:11 What Is Your Level Of Caffeine Consumption? None Information not available 08/15/2022 What Type Of Diet Are You Following? REGULAR Information not available 08/15/2022 Sex: Unknown Functional Status Question Answer Note LastModified by Organizat ion Details LastModified Time Do you use any illicit or recreational drugs? No Information not available 08/15/2022 What is your level of alcohol consumption? None Information not available 08/15/2022 What is your exercise level? Occasional Information not available 08/15/2022 Mental Status None recorded. Family History Relationship Description Onset Age of this Age Resolved Age Notes LastModified by Organization Details LastModified Time Mother Primary malignant neoplasm of body of stomach [email or web address] Not available 2022 15:31:26 Father Malignant neoplasm of bone [email or web address] Not available 2022 15:31:35 Medical History Condition Response Coronary Artery Disease N Gout N None N Colon Cancer N Kidney Stones N Hyperthyroidism N Depression N COPD N Hypothyroidism N Osteoporosis/Osteopenia Y Diverticulitis/Diverticulosis N Colon Polyps N Anxiety Disorder N Diabetes N Bleeding Disorder N Arthritis Y Seizures/Epilepsy N Tuberculosis N Hyperlipidemia N Cancer N Stroke N Asthma N Sleep Apnea N GERD/Reflux Y Hepatitis N Cirrhosis N Liver Disease N Heart Disease N Hypertension N Kidney Disease N Gynecological HistoryNo gynecological history recorded. Obstetrics History GPAL:G 0 P 0 0 0 0 Past Encounters Encounter ID Performer Location Encounter Start Date Encounter Closed Date Diagnosis/Indication Diagnosis SNOMED-CT Code Diagnosis ICD10 Code Diagnosis Note [id number] [facility] [address] [place] [phone] 08/15/2022 14:37:35 08/15/2022 16:03:28 Screening for malignant neoplasm of colon 695681953 Z12.11 the patient had a colonoscop y in 2015, at that time the provider recommende d a follow-up in 6-7 years, this is not in keeping with standard recommende d follow-up, however given the procedure was not performed by myself I do not know if there were extenuatin g circumstan mayo that warranted earlier follow-up we therefore will proceed with a colonoscop y. Gastric in testinal metaplasia 38982387 K31.A0 the patient is due for follow-up related to her gastric intestinal metaplasia , will do sequential biopsies mapping the gastric mucosa. Looking for evidence of dysplasia Abdominal bloating 74954 9065 R14.0 suspect dietary in nature, recommend patient keep a 2 week food diary, with all foods and drinks being long by date and time can symptoms by date and time. Health Concerns Section Related Observation LastModified by Organization Detai ls LastModified Time None Recorded Concern Status LastModified by Organization Details LastModified Time None Recorded Advance Directives Directive None Recorded Payers Insurance Date Sequence Insurance Name Policy Number Policy García Covered Member ID García Member ID Guarantor Name 08/13/2022 1 [place]ARE[place]ARE[place] Edgar Pierre [id number] Edgar Pierre 08/31/2022 2 [employer] - FOR LIFE (MEDICARE SUPPLEMENT) Edwin Pierre [id number] Edgar Pierre 08/19/2022 3 [place] [place] [employer] () Edgar Pierre [id number] Edgar Pierre Notes Date Note Type Note Provider Name and Address Organization Details Recorded Time 08/15/2022 text/html This is a 66-year-old Spanish female was referred for consideration of colorectal cancer screening, follow-up on gastric intestinal metaplasia, in because of complaints with abdominal gas, and change in bowel habits. Patient had a colonoscopy in 2016 done at an outside institution that was reported as normal but it was recommended at that time she have a follow-up colonoscopy in 6-7 years. The patient notes that she has had a change in stool caliber, but on questioning she notes that her stools will sometimes be big can sometimes be small, this is not a consistent progressive change across time but rather than ongoing variation dated today. She has had no melena or bright red blood per rectum. She notes bloating is related to eating, but has never kept track of what foods seem to cause her to have bloating. He has had no weight loss no fevers or chills. No nausea or vomiting Wali Rhodes MD [address], [place], [address], [facility] - [place] - [place] & [place] 08/15/2022 16:00:53 OBGyn Episode No OBEpisode recorded.
[2024-12-26 14:45] LABS: Basophils % 0.4 % (0.1-2.0); Eosinophils # 0.1 Kmm3 (0.0-0.4); Eosinophils % 1.5 % (0.1-12.0); Hematocrit 36.4 % (37.0-47.0); Hemoglobin 12.6 g/dL (12.2-16.2); Immature Granulocytes # 0.01 10^3uL; Immature Granulocytes % 0.2 %; Lymphocytes # 2.3 K/mm3 (0.7-4.5); Lymphocytes % 43.7 % (10-50); Mean Corpuscular HGB Conc 34.6 g/dL (31.8-35.4); Mean Corpuscular Hemoglobin 31.9 pg (27.0-31.2); Mean Corpuscular Volume 92.2 fl (81-99); Mean Platelet Volume 10.7 fl (7.4-10.4); Monocytes # 0.5 K/mm3 (0.1-1.0); Monocytes % 10.1 % (1.7-9.3); Neutrophils # 2.3 K/mm3 (1.8-7.8); Neutrophils % 44.1 % (37.0-80.0); Nucleated Red Blood Cells # 0 10^3/uL; Nucleated Red Blood Cells % 0 %; Platelet Count 199 K/mm3 (142-424); Red Blood Count 3.95 M/mm3 (4.20-5.40); Red Cell Distribution Width 12.1 % (11.5-17.5); White Blood Count 5.3 K/mm3 (4.8-10.8)
[2024-12-26 15:07] LABS: C-Reactive Protein 0.4 mg/L (0-4)
[2024-12-26 15:48] LABS: Erythrocyte Sedimentation Rate 16 mm/hr (0-30)
== END 2024-12-26 23:59 | disposition home or self-care (01) ==
LOC: LAB 13:40
PROVIDERS: PCP Family Medicine; Visit Provider Ophthalmology
DX: M31.6 Other giant cell arteritis (principal)
CPT/HCPCS: 36415; 85025; 85651; 86140